=== PATIENT | female | born 1970 | race Hispanic/Latino ===

== ENCOUNTER 2019-11-25 14:23 | Emergency (ER) | payer OTHER ==
--- OUTSIDE RECORDS SUMMARY | 2019-11-25 14:25 | XMS REPORT ---
:1970 [facility] Address [address] [place] [address] Care Team Providers Name Role Phone Unavailable Unavailable Unavailable Payers Payer Name Policy Type Policy Number Effective Date Expiration Date Problems This patient has no known problems. Allergies, Adverse Reactions, Alerts Allergy Allergy Status Severity Reaction(s) Onset Inactive Treating Comments Name Type Date Date Clinician No Known DA Active U 2018-08 Allergies -26 00:00:0 0 No Known DA Active U 2018-08 Allergies - 00:00:0 0 Medications This patient has no known medications. Results Test Description Test Time Test Comments Text Results Atomic Results Result Comments - XR FLUORO FOR SPINE INJ 2019-01-11 17:23:00 Patient Name: BHUMI VARGAS Unit No: [id number] EXAMS: CPT CODE: [id number] XR FLUORO FOR SPINE INJ 03235 LUMBAR EPIRADICULAR INJECTION REFERRAL PHYSICIAN: Alfonzo Anderson M.D. PREOPERATIVE DIAGNOSIS: Lumbar Radiculitis POSTOPERATIVE DIAGNOSIS: L4-5 grade 1 spondylolisthesis with primary left L5 radicular pain PROCEDURES PERFORMED: Fluoroscopically guided needle localization of the bilateral L4 and bilateral L5 spinal nerves with transforaminal epidurograms and epidural injection of local anesthetic and steroid. FINDINGS: While preoperative orders were on the right, the patient claimed no pain on the right and only left-sided pain in an L5 radicular pattern. For this reason, bilateral injections were performed. Good flow seen through all foramen with flow limitations in the bilateral L4-5 lateral recesses. Good flow seen centrally across the L4-5 grade 1 spondylolisthesis with minimal disc displacement. Excellent flow was also seen retrograde across L5-S1 and L3-4. Provocation with injection was negative. Anesthetic response was positive with the patient noting complete relief of her low back and left lower extremity pain. Preinjection VAS 9/10. Postinjection VAS 0/10. Steroid response pending follow-up. ESTIMATED BLOOD LOSS: Minimal ANESTHESIA: TIVA COMPLICATIONS: None DETAILS OF PROCEDURE: After obtaining stable vital signs, informed consent and IV access, with no contraindications, the patient was taken to the operating room and placed in a prone position with all extremities padded and appropriate monitors placed. The patient was sterilely prepped and draped over the lumbosacral spine. Using fluoroscopic visualization the insertion sites were marked for paravertebral approaches and using standard technique, a 25 gauge needle was advanced to the base of each pedicle without paresthesias. Isovue-300 contrast 0.2 mL of was injected incrementally with frequent negative aspirations to produce each epidurogram. There were no signs of intravascular or intrathecal uptake. Bupivicaine 0.75% 0.25 mL with lidocaine 4% 0.25 mL and Decadron 5 mg was then incrementally injected with frequent negative aspirations and again there were no signs of intravascular or intrathecal uptake. The needles were removed and the patient was taken to the PACU in good condition. at 1723 Reported and signed by: David Burnett M.D. [facility] NAME: BHUMI VARGAS [address] [facility] PHYS: David Woods MD [place], [place] [address] : 1970 AGE: 48 SEX: F LOC: [place] PHONE #: [phone] EXAM DATE: 01/11/2019 STATUS: REG [facility] [place] FAX #: [phone] RAD #: D/C DT PAGE 1 Signed Report (CONTINUED) Patient Name: BHUMI VARGAS Unit No: [id number] EXAMS: CPT CODE: [id number] XR FLUORO FOR SPINE INJ 46047 <Continued> CC: Alfonzo Anderson M.D. Technologist: Uzma Pickard(R) Transcribed D/ (3432) Hue [facility] NAME: BHUMI VARGAS [address] [facility] PHYS: David Woods MD [place], [place] [address] : 1970 AGE: 48 SEX: F LOC: [place] PHONE #: [phone] EXAM DATE: 01/11/2019 STATUS: [facility] [place] FAX #: [phone] RAD #: D/C DT PAGE 2 Signed Report Patient Name: BHUMI VARGAS Unit No: [id number] EXAMS: CPT CODE: [id number] XR FLUORO FOR SPINE INJ 34320 <Continued> Orig Print D/T: S: 01/11/2019 (7743) [facility] NAME: BHUMI VARGAS [address] [facility] PHYS: David Woods MD [place] [address] : 1970 AGE: 48 SEX: F LOC: [place] PHONE #: [phone] EXAM DATE: 01/11/2019 STATUS: [facility] [place] FAX #: [phone] RAD #: D/C DT PAGE 3 Signed Report GLUBED 2019-01-11 09:44:00 Test Item Value Reference Range Comments GLUBED (test code=GLUBED) 91 mg/dL 60-125 [id number] 08:05:00 Test Item Value Reference Range Comments GLUBED (test code=GLUBED) 110 mg/dL 60-125
[2019-11-25] MEDS ORDERED: HYDROCODONE/APAP 5/325 MG TAB ONE (15:03)
--- NOTE | 2019-11-25 15:24 | RAD REPORT ---
EXAM DESCRIPTION: CT - CTHCSPWOC - 11/25/2019 3:06 pm CLINICAL HISTORY: Trauma, head and neck injury. fall, head/face injury, neck pain COMPARISON: Facial Bones W/ Mpr dated 11/25/2019 TECHNIQUE: Axial 5 mm thick images of the head were obtained. Axial 2 mm thick images of the cervical spine were obtained with sagittal and coronal reconstruction images generated and reviewed. All CT scans are performed using dose optimization technique as appropriate and may include automated exposure control or mA/KV adjustment according to patient size. FINDINGS: CT HEAD WITHOUT CONTRAST: No acute hemorrhage, hydrocephalus or extra-axial collection is identified.No areas of brain edema or midline shift. The paranasal sinuses and mastoids are clear.The calvarium is intact. CT CERVICAL SPINE WITHOUT CONTRAST: No fracture or subluxation.Mild lower cervical spondylosis.No prevertebral soft tissues swelling is i dentified. IMPRESSION: No acute intracranial or cervical spine findings.
--- NOTE | 2019-11-25 15:25 | RAD REPORT ---
EXAM DESCRIPTION: CT - CTFB CLINICAL HISTORY: FACIAL PAIN Fall, trauma, pain and swelling to left side of face. COMPARISON: No comparisons TECHNIQUE: Axial 2 mm thick images of the face were obtained with sagittal and coronal reconstructio n images. All CT scans are performed using dose optimization technique as appropriate and may include automated exposure control or mA/KV adjustment according to patient size. FINDINGS: No acute facial bone fracture is seen.The mandible is intact. The globes and orbital contents are grossly unremarkable.The paranasal sinuses and mastoids are clear . IMPRESSION: Negative for facial bone fracture.
--- NOTE | 2019-11-25 15:39 | RAD REPORT ---
EXAM DESCRIPTION: RAD - Knee Left 3 View - 11/25/2019 3:33 pm CLINICAL HISTORY: PAIN COMPARISON: No comparisons FINDINGS: Hyjq-gu-rmxbduol medial joint compartment space narrowing is present compatible with mild osteoarthritis. No fracture or joint effusion seen.
--- NOTE | 2019-11-25 15:43 | RAD REPORT ---
EXAM DESCRIPTION: RAD - Chest Pa And Lat (2 Views) - 11/25/2019 3:33 pm CLINICAL HISTORY: BLUNT CHEST TRAUMA Chest pain. COMPARISON: No comparisons FINDINGS: The lungs are clear. The heart is normal in size. No displaced fractures. IMPRESSION: No acute or concerning finding suspected.
--- NOTE | 2019-11-25 16:20 | EDPHYS ---
Physician Documentation [facility] Name: Flor Groves Age: 49 yrs Sex: Female : 1970 Arrival Date: 11/25/2019 Time: 14:25 Bed 20 Private MD: ED Physician Jamie Seay HPI: 11/25 14:59 This 49 yrs old Female presents to ER via Wheelchair with complaints of Fall rn Injury, Facial Swelling, Leg Swelling. 14:59 Details of fall: The patient fell from an upright position. Onset: The symptoms/episode rn began/occurred just prior to arrival. Associated injuries: The patient sustained injury to the head, injury to the chest, lef tknee. Severity of symptoms: At their worst the symptoms were mild, in the emergency department the symptoms are unchanged. The patient has not experienced similar symptoms in the past. Reports fell while walking at store, unsure how she fell, reports hits forehead, and left knee, no LOC, reports happened very quickly and not sure of all events. No blood thinners. Reports mild anterior chest pain with breathing, but denies sob. + mild neck pain.. 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 - Coronavirus screen:: The patient HAS traveled to [place], [place], or [place] in the past 14 days. The patient does NOT have a fever and/or cough. - Social history:: Smoking status: Patient/guardian denies using. - Family history:: not pertinent. - Ebola Screening: : Patient reports travel to an Ebola-affected area in the 21 days before illness onset. Patient reports to have traveled to [facility] from [place] 2019. - Hospitalizations: : No recent hospitalization is reported. ROS: 14:59 Constitutional: Negative for fever, chills, and weight loss, Eyes: Negative for injury, rn pain, redness, and discharge, Neck: + neck pain Cardiovascular: + anterior chest pain Respiratory: Negative for shortness of breath, cough, wheezing Abdomen/GI: Negative for abdominal pain, nausea, vomiting, diarrhea, and constipation, MS/Extremity: + left knee injury and pain Skin: Negative for injury, rash, and discoloration, Neuro: Negative for weakness, numbness, tingling, and seizure. Exam: 14:59 Constitutional: This is a well developed, well nourished patient who is awake, alert, rn and in no acute distress. Head/Face: Normocephalic, mild tenderness left forehead and periocular region Eyes: Pupils equal round and reactive to light, extra-ocular motions intact. Lids and lashes normal. Conjunctiva and sclera are non-icteric and not injected. ENT: No oral trauma Neck: No midline tenderness, + pericervical bilateral tenderness Chest/axilla: Normal chest wall appearance and motion. Cardiovascular: Regular rate and rhythm. No pulse deficits. Respiratory: No increased work of breathing, no retractions or nasal flaring. Abdomen/GI: soft, non-tender Back: No spinal tenderness. No costovertebral tenderness. Full range of motion. MS/ Extremity: Pulses equal, no cyanosis. Neurovascular intact. Mild painful ROM left knee with minimal swelling. Neuro: Awake and alert, GCS 15, oriented to person, place, time, and situation. Cranial nerves II-XII grossly intact. Motor strength 5/5 in all extremities. Sensory grossly intact. Cerebellar exam normal. Able to get to bed from wheelchair. 16:18 ECG was reviewed by the Attending Physician. rn Vital Signs: 14:41 BP 137 / 87; Pulse 89; Resp 17; Temp 97.9(TE); Pulse Ox 100% on R/A; Weight 99.79 kg; rb1 Height 5 ft. 4 in. (162.56 cm); Pain 10/10; 16:00 BP 134 / 84; Pulse 87; Resp 17; Temp 98.0(O); Pulse Ox 99% on R/A; mh5 16:54 BP 130 / 84; Pulse 84; Resp 16; Temp 98; Pulse Ox 100% ; bp 14:41 Body Mass Index 37.76 (99.79 kg, 162.56 cm) rb1 MDM: 14:43 Patient medically screened. rn 16:16 Differential diagnosis: closed head injury, contusion, sprain. Data reviewed: vital rn signs, nurses notes, EKG, radiologic studies, plain films. Test interpretation: by ED physician or midlevel provider: ECG, plain radiologic studies, No acute findings on cxr/knee. Counseling: I had a detailed discussion with the patient and/or guardian regarding: the historical points, exam findings, and any diagnostic results supporting the discharge/admit diagnosis, radiology results, the need for outpatient follow up, to return to the emergency department if symptoms worsen or persist or if there are any questions or concerns that arise at home. Response to treatment: the patient's symptoms have markedly improved after treatment, the patient's condition has returned to base line, and as a result, I will discharge patient. Special discussion: Based on the patient's history, exam and DX evaluation, there is no indication for emergent intervention or inpatient [place]. It is understood by the patient/guardian that if the SXs persist or worsen they need to return immediately for re-evaluation. I discussed with the patient/guardian in detail that at this point there is no indication for admission to the hospital. It is understood, however, that if the symptoms persist or worsen the patient needs to return immediately for re-evaluation. 11/25 14:49 Order name: CT Head C Spine; Complete Time: 15:53 rn 11/25 14:49 Order name: CT Facial Bones W/O Con; Complete Time: 15:53 rn 11/25 14:49 Order name: XRAY Chest Pa And Lat (2 Views); Complete Time: 15:53 rn 11/25 14:49 Order name: XRAY Knee LEFT 3 view; Complete Time: 15:53 rn 11/25 15:53 Order name: EKG; Complete Time: 15:54 rn 11/25 15:53 Order name: EKG - Nurse/Tech; Complete Time: 16:03 rn EC:18 Rate is 82 beats/min. Rhythm is regular. QRS [place] is Normal. MO interval is normal. QRS rn interval is normal. QT interval is normal. No Q waves. T waves are Normal. No ST changes noted. Clinical impression: Normal ECG. Interpreted by me. Reviewed by me. Administered Medications: 15:50 Drug: [place] 5 mg-325 mg 1 tabs Route: PO; bp 16:03 Follow up: Response: Pain is decreased bp Disposition: 11/25/19 16:18 Discharged to Home. Impression: Superficial injury of head, Contusion of left knee. - Condition is Stable. - Discharge Instructions: Contusion, Head Injury, Adult. - Medication Reconciliation Form, Thank You Letter, Antibiotic Education, Prescription Opioid Use form. - Follow up: Private Physician; When: As needed; Reason: Recheck today's complaints, Re-evaluation by your physician. - Problem is new. - Symptoms have improved. Signatures: Dispatcher [employer] EDMS Jamie Seay MD MD rn Barber, Rebecca, RN RN rb1 Quang Sol RN RN bp Corrections: (The following items were deleted from the chart) 15:02 14:59 Constitutional: Negative for fever, chills, and weight loss, Eyes: Negative for rn injury, pain, redness, and discharge, Neck: Negative for injury, pain, and swelling, Cardiovascular: + anterior chest pain Respiratory: Negative for shortness of breath, cough, wheezing Abdomen/GI: Negative for abdominal pain, nausea, vomiting, diarrhea, and constipation, MS/Extremity: + left knee injury and pain Skin: Negative for injury, rash, and discoloration, Neuro: Negative for weakness, numbness, tingling, and seizure, rn 16:55 16:18 11/25/2019 16:18 Discharged to Home. Impression: Superficial injury of head; bp Contusion of left knee. Condition is Stable. Forms are Medication Reconciliation Form, Thank You Letter, Antibiotic Education, Prescription Opioid Use. Follow up: Private Physician; When: As needed; Reason: Recheck today's complaints, Re-evaluation by your physician. Problem is new. Symptoms have improved. rn
--- NOTE | 2019-11-25 16:20 | ER ---
Nurse's Notes [facility] Name: Flor Groves Age: 49 yrs Sex: Female : 1970 Arrival Date: 11/25/2019 Time: 14:25 Bed 20 Private MD: Diagnosis: Superficial injury of head;Contusion of left knee Presentation: 11/25 14:36 Presenting complaint: states: Fell today at [employer] at 1345. Hit left side of rb1 face, denies LOC. Swelling left leg. Transition of care: patient was not received from another setting of care. Onset of symptoms was November 25, 2019 at 13:45. Risk Assessment: Do you want to hurt yourself or someone else? Patient reports no desire to harm self or others. Initial Sepsis Screen: Does the patient meet any 2 criteria? No. Patient's initial sepsis screen is negative. Does the patient have a suspected source of infection? No. Patient's initial sepsis screen is negative. Care prior to arrival: None. 14:36 Method Of Arrival: Wheelchair [facility] 14:36 Acuity: CHAPIS 3 rb1 Triage Assessment: 14:41 General: Appears in no apparent distress. comfortable, Behavior is calm, cooperative. rb1 Pain: Complains of pain in left side of head Pain currently is 10 out of 10 on a pain scale. Neuro: Level of Consciousness is awake, alert, obeys commands, Oriented to person, place, time, situation. Respiratory: Airway is patent Respiratory effort is even, unlabored, Respiratory pattern is regular, symmetrical. Derm: Skin is pink, warm \T\ dry. 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 - Coronavirus screen:: The patient HAS traveled to [place], [place], or [place] in the past 14 days. The patient does NOT have a fever and/or cough. - Social history:: Smoking status: Patient/guardian denies using. - Family history:: not pertinent. - Ebola Screening: : Patient reports travel to an Ebola-affected area in the 21 days before illness onset. Patient reports to have traveled to Returned from [place] 2019. - Hospitalizations: : No recent hospitalization is reported. Screenin:50 Abuse screen: Denies threats or abuse. Denies injuries from another. Nutritional bp screening: No deficits noted. Tuberculosis screening: No symptoms or risk factors identified. Fall Risk None identified. Assessment: 14:50 General: SEE TRIAGE NOTE. bp 15:49 Reassessment: PT RETURNED FROM RADIOLOGY, RESULTS PENDING. bp 16:53 Reassessment: PT D/C HOME AMBULATORY WITH FAMILY, DX WITH SUPERFICIAL CONTUSION. bp Vital Signs: 14:41 BP 137 / 87; Pulse 89; Resp 17; Temp 97.9(TE); Pulse Ox 100% on R/A; Weight 99.79 kg; rb1 Height 5 ft. 4 in. (162.56 cm); Pain 10/10; 16:00 BP 134 / 84; Pulse 87; Resp 17; Temp 98.0(O); Pulse Ox 99% on R/A; mh5 16:54 BP 130 / 84; Pulse 84; Resp 16; Temp 98; Pulse Ox 100% ; bp 14:41 Body Mass Index 37.76 (99.79 kg, 162.56 cm) rb1 ED Course: 14:25 Patient arrived in ED. as 14:40 Triage completed. rb1 14:41 Arm band placed on right wrist. rb1 14:43 Jamie Seay MD is Attending Physician. rn 14:50 Patient has correct armband on for positive identification. Bed in low position. Call bp light in reach. Side rails up X2. Adult w/ patient. 14:54 Quang Sol, RN is Primary Nurse. bp 15:10 CT Head C Spine In Process Unspecified. EDMS 15:13 CT Facial Bones W/O Con In Process Unspecified. EDMS 15:34 XRAY Chest Pa And Lat (2 Views) In Process Unspecified. EDMS 15:34 XRAY Knee LEFT 3 view In Process Unspecified. EDMS 16:53 No provider procedures requiring assistance completed. Patient did not have IV access bp during this emergency room visit. Administered Medications: 15:50 Drug: [place] 5 mg-325 mg 1 tabs Route: PO; bp 16:03 Follow up: Response: Pain is decreased bp Outcome: 16:18 Discharge ordered by . rn 16:53 Discharged to home ambulatory, with family. bp 16:53 Condition: stable 16:53 Discharge instructions given to patient, Instructed on discharge instructions, follow up and referral plans. Demonstrated understanding of instructions, follow-up care. 16:55 Patient left the ED. bp Signatures: Dispatcher [employer] Gregoria Stein Roman, MD MD rn Barber, Rebecca, RN RN rb1 Jose, [facility] Quang Sol RN RN bp
[2019-11-25 17:02] VITALS: BP 130/84; TEMP 98; O2SAT 100
--- NOTE | 2019-11-26 06:15 | EKG ---
Test Date: 2019-11-25 Test Time: 16:09:43 [employer]: DOMINIQUE MEASUREMENT RESULTS: Intervals: Rate: 82 LA: 160 QRSD: 84 QT: 390 QTc: 455 [place]: P: 36 LA: 160 QRS: 46 T: 45 INTERPRETIVE STATEMENTS: Normal sinus rhythm Normal ECG No previous ECG available for comparison Electronically Signed On 11-26-19 06:14:36 PROVIDER RELATIONS ADVOCATE by Vipin Massey
== END 2019-11-25 16:55 | disposition home or self-care (01) ==
LOC: ER 14:23
DX: S80.02XA Contusion of left knee, initial encounter (principal); R07.9 Chest pain, unspecified; W19.XXXA Unspecified fall, initial encounter; Y93.01 Activity, walking, marching and hiking; Y92.512 Supermarket, store or market as the place of occurrence of the external cause; I10 Essential (primary) hypertension
CPT/HCPCS: 70450; 70486; 71046; 72125; 76377; 93005; 99283

== ENCOUNTER 2023-05-11 10:21 | Emergency (ER) | payer OTHER ==
--- OUTSIDE RECORDS SUMMARY | 2023-05-11 10:26 | XMS REPORT | Continuity of Care Document ---
:1970 Author Organization [facility] t Address [address] [place] [address] Care Team Providers Name Role Phone MARY JO TAMAYO Primary Care Physician Unavailable LAURA ROSS Attending Clinician Unavailable Doctor Unassigned, [place] Attending Clinician Unavailable HERMELINDA JIMENEZ Attending Clinician Unavailable Hermelinda Jimenez MD Attending Clinician Fili Attending Clinician Unavailable Alfonzo Anderson Attending Clinician [phone] David Burnett Attending Clinician Unavailable Alfonzo Anderson Attending Clinician Unavailable Jennifer Stephens Attending Clinician [facility] Attending Clinician Unavailable Garland Ventura Attending Clinician GARLAND BECKMAN Attending Clinician Unavailable Fili Admitting Clinician Unavailable Alfonzo Anderson Admitting Clinician Unavailable Payers Payer Name Policy Type Policy Number Effective Date Expiration Date S kassandra [facility] [id number] 2019 PPO 00:00:00 [facility] BC[facility] BLUE [id number] 2014 ADVANTAGE O 00:00:00 [facility] [id number] 2021 (PPO) 00:00:00 Problems Condition Condition Condition Status Onset Resolution Last Treating Co mments Source Name Details Category Date Date Treatment Clinician Date 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 04-22 [place] sthesis sthesis 00:00: dic 00 Sports Medicin e Degenerati Degenerati Problem Active A zalea on of on of - Orthope cervical Cervical 00:00: dic interverte Interverte 00 Sp orts bral disc bral Disc Medi ashlyn e Cervical Cervical Problem Active [place]ale a radiculopa Radiculopa 04-22 Or thope thy thy 00:00: dic 00 Sports Medicin e Lumbar Lumbar Problem Active Kerry disc Disc 3-28 Orthope prolapse Prolapse 00:00: dic with with 00 Sports radiculopa Radiculopa Me dicin thy thy e Spinal Spinal Problem Active Kerry stenosis Stenosis 3-28 Orthop e of lumbar of Lumbar 00:00: dic region Region 00 Sports Medicin e Displaceme Displaceme Problem Active 2017-10 A zalea nt of nt of 2-10 Orthope cervical Cervical 00:00: dic interverte Interverte 00 Sp orts bral disc bral Disc Medi ashlyn e Degenerati Degenerati Problem Active 2017-10 A zalea on of on of 2-10 Orthope lumbar Lumbar 00:00: dic interverte Interverte 00 Sp orts bral disc bral Disc Medi ashlyn e Degenerati Degenerati Problem Active 2017-10 A z[place]a on of on of 2-10 Orthope lumbosacra Lumbosacra 00:00: di c l l 00 Sports interverte Interverte Me dicin bral disc bral Disc e Spondyloli Spondyloli Problem Active 2017-10 A zalea sthesis sthesis 2-10 Orthope 00:00: dic 00 Sports Medicin e Spinal Spinal Problem Active 2017-10 Kerry stenosis Stenosis 1-28 Orthop e in in 00:00: dic cervical Cervical 00 Sports region Region Medicin e Cervical Cervical Problem Active 2017-10 [place]ale a disc Disc 1-28 Orthope disorder Disorder 00:00: dic with with 00 Sports radiculopa Radiculopa Me dicin thy thy e Lumbar Lumbar Problem Active 2017-10 Kerry radiculopa Radiculopa 1-16 Or thope thy thy 00:00: dic 00 Sports Medicin e Pain in Pain in Problem Active 2017-10 Kerry left arm Left Arm 1-16 Orthop e 00:00: dic 00 Sports Medicin e Neck pain Neck Pain Problem Active 2017-10 Aza richie 0-11 Orthope 00:00: dic 00 Sports Medicin e Low back Low Back Problem Active 2017-10 [place]ale a pain Pain 0-11 Orthope 00:00: dic 00 Sports Medicin e Other Other Disease Active Univers postproced postproced 4-21 it y of ural ural 00:00: [place] status(V45 status(V45 00 Me dical .89) .89) Branch Allergies, Adverse Reactions, Alerts Allergy Allergy Status Severity Reaction(s) Onset Inactive Treating Comm ents Source Name Type Date Date Clinician No Known DA Active U 2017-10 [facility] Allergie 11-11 [facility] 00:00: Orthope 00 dic Hosp[facility] No Known DA Active U 2017-10 [facility] Allergie 11-11 [place] s 00:00: Orthope 00 dic Hospita l No Known DA Active U 2017-10 [facility] Allergie 11-06 [place] s 00:00: Orthope 00 dic Hospita l NO KNOWN Drug Active [facility] Social Habit Start Date Stop Date Quantity Comments Source Gender identity [facility] Sexual orientation [facility] Exposure to 2022-08-17 2022-08-27 Not sure [facility] SARS-CoV-2 (event) 00:00:00 08:38:00 [facility] Tobacco use and 2022-08-27 2022-08-27 Smokeless Universit y of exposure 00:00:00 00:00:00 tobacco non-user [facility] History of Social 2022-08-27 2022-08-27 Univers ity of function 00:00:00 00:00:00 [facility] Sex [birth year] Universit y of 00:00:00 00:00:00 [facility] Smoking Status Start Date Stop Date Source Never smoked tobacco [facility] Medications Ordered Filled Start Stop Current Ordering Indication Dosage Frequency Signature Comments Components Source Medication Medication Date Date Medication? Clinician (SIG) Name Name triamcinolo 2021-10- No [id number] 40mg Univers ne 10-27 9109 ity of acetonide 16:00: 14:50 [place] (KENALOG) 00 :00 Medical injection Branch 40 mg triamcinolo 2021-10- No [id number] 40mg 40 mg, Univers ne 10-27 9109 Intramuscu ity of acetonide 16:00: 14:50 [place]CE, [place] (KE[place]LOG[place] 00 :00 1 dose, On Medi jayson injection Fri Branch 40 mg 08/27/22 at 1000, Routine triamcinolo 2021-10- No [id number] 40mg Univers ne 10-27 9109 ity of acetonide 16:00: 14:50 [place] (KENALOG) 00 :00 Medical injection Branch 40 mg triamcinolo 2021-10- No [id number] 40mg 40 mg, Univers ne 10-27 9109 Intramuscu ity of acetonide 16:00: 14:50 [place]CE, [place] (KE[place]LOG) 00 :00 1 dose, On Medi jayson injection Fri Branch 40 mg 08/27/22 at 1000, Routine amitriptyli 2020-0 Yes TAKE 1 Univ ers ne 25 mg 7-07 TABLET BY ity of tablet 00:00: MOUTH ONCE 00 DAILY AT Medical BEDTIME Branch ONETOUCH 2020-0 Yes USE TO Univers ULTRA BLUE 7-07 CHECK ity of TEST STRIP 00:00: GLU[place]SE [place] strip 00 ONCE DAILY Medical Branch levothyroxi 2020-0 Yes 50ug Take 50 Uni vers ne 50 mcg 7-07 mcg by ity of tablet 00:00: mouth. [place] 00 Medical Branch losartan 2020-0 Yes 100mg Take 100 Univ ers 100 mg 7-07 mg by ity of tablet 00:00: mouth 00 daily. Medical Branch metFORMIN 2020-0 Yes 1000mg Take 1,000 Univers 1,000 mg 7-07 mg by ity of tablet 00:00: mouth 2 [place] 00 (two) Medical times Branch daily. amitriptyli 2020-0 Yes TAKE 1 Univ ers ne 25 mg 7-07 TABLET BY ity of tablet 00:00: MOUTH ONCE [place] 00 DAILY AT Medical BEDTIME Branch ONETOUCH 2020-0 Yes USE TO Univers ULTRA BLUE 7-07 CHECK ity of TEST STRIP 00:00: GLUCOSE [place] strip 00 ONCE DAILY Medical Branch levothyroxi 2020-0 Yes 50ug Take 50 Uni vers ne 50 mcg 7-07 mcg by ity of tablet 00:00: mouth. Medical Branch losartan 2020-0 Yes 100mg Take 100 Univ ers 100 mg 7-07 mg by ity of tablet 00:00: mouth 00 daily. Medical Branch metFORMIN 2020-0 Yes 1000mg Take 1,000 Univers 1,000 mg 7-07 mg by ity of tablet 00:00: mouth 2 (two) Medical times Branch daily. amitriptyli 2020-0 Yes TAKE 1 Univ ers ne 25 mg 7-07 TABLET BY ity of tablet 00:00: MOUTH ONCE DAILY AT Medical BEDTIME Branch ONETOUCH 2020-0 Yes USE TO Univers ULTRA BLUE 7-07 CHECK ity of TEST STRIP 00:00: GLUCOSE [place] strip 00 ONCE DAILY Medical Branch levothyroxi 2020-0 Yes 50ug Take 50 Uni vers ne 50 mcg 7-07 mcg by ity of tablet 00:00: mouth. Medical Branch losartan 2020-0 Yes 100mg Take 100 Univ ers 100 mg 7-07 mg by ity of tablet 00:00: mouth daily. Medical Branch metFORMIN 2020-0 Yes 1000mg Take 1,000 Univers 1,000 mg 7-07 mg by ity of tablet 00:00: mouth 2 (two) Medical times Branch daily. amitriptyli 2020-0 Yes TAKE 1 Univ ers ne 25 mg 7-07 TABLET BY ity of tablet 00:00: MOUTH ONCE DAILY AT Medical BEDTIME Branch ONETOUCH 2020-0 Yes USE TO Univers ULTRA BLUE 7-07 CHECK ity of TEST STRIP 00:00: GLUCOSE [place] strip 00 ONCE DAILY Medical Branch levothyroxi 2020-0 Yes 50ug Take 50 Uni vers ne 50 mcg 7-07 mcg by ity of tablet 00:00: mouth. Medical Branch losartan 2020-0 Yes 100mg Take 100 Univ ers 100 mg 7-07 mg by ity of tablet 00:00: mouth 00 daily. Medical Branch metFORMIN 2020-0 Yes 1000mg Take 1,000 Univers 1,000 mg 7-07 mg by ity of tablet 00:00: mouth 2 (two) Medical times Branch daily. amitriptyli 2020-0 Yes TAKE 1 Univ ers ne 25 mg 7-07 TABLET BY ity of tablet 00:00: MOUTH ONCE DAILY AT Medical BEDTIME Branch ONETOUCH 2020-0 Yes USE TO Univers ULTRA BLUE 7-07 CHECK ity of TEST STRIP 00:00: GLUCOSE [place] strip 00 ONCE DAILY Medical Branch levothyroxi 2020-0 Yes 50ug Take 50 Uni vers ne 50 mcg 7-07 mcg by ity of tablet 00:00: mouth. Medical Branch losartan 2020-0 Yes 100mg Take 100 Univ ers 100 mg 7-07 mg by ity of tablet 00:00: mouth daily. Medical Branch metFORMIN 2020-0 Yes 1000mg Take 1,000 Univers 1,000 mg 7-07 mg by ity of tablet 00:00: mouth 2 (two) Medical times [place] daily. amitriptyli 2020-0 Yes TAKE 1 Univ ers ne 25 mg 7-07 TABLET BY ity of tablet 00:00: MOUTH ONCE DAILY AT [facility] BEDTIME Branch ONETOUCH 2020-0 Yes USE TO Univers ULTRA BLUE 7-07 CHECK ity of TEST STRIP 00:00: GLUCOSE [place] strip 00 ONCE DAILY Medical Branch levothyroxi 2020-0 Yes 50ug Take 50 Uni vers ne 50 mcg 7-07 mcg by ity of tablet 00:00: mouth. Medical Branch losartan 2020-0 Yes 100mg Take 100 Univ ers 100 mg 7-07 mg by ity of tablet 00:00: mouth daily. Medical Branch metFORMIN 2020-0 Yes 1000mg Take 1,000 Univers 1,000 mg 7-07 mg by ity of tablet 00:00: mouth 2 (two) Medical times [place] daily. loratadine 2020-0 Yes 10mg Take 10 mg U nivers 10 mg 6-27 by mouth ity of tablet 00:00: daily. Medical Branch loratadine 2020-0 Yes 10mg Take 10 mg U nivers 10 mg 6-27 by mouth ity of tablet 00:00: daily. Medical Branch loratadine 2020-0 Yes 10mg Take 10 mg U nivers 10 mg 6-27 by mouth ity of tablet 00:00: daily. Medical Branch loratadine 2020-0 Yes 10mg Take 10 mg U nivers 10 mg 6-27 by mouth ity of tablet 00:00: daily. [place] Medical Branch loratadine 2020-0 Yes 10mg Take 10 mg U nivers 10 mg 6-27 by mouth ity of tablet 00:00: daily. [place] Medical Branch loratadine 2020-0 Yes 10mg Take 10 mg U nivers 10 mg 6-27 by mouth ity of tablet 00:00: daily. [place] Medical Branch diclofenac 2020-0 Yes 75mg Take 75 mg U nivers 75 mg EC 6-26 by mouth 2 ity o f tablet 00:00: (two) [place] 00 times Medical daily. Branch diclofenac 2020-0 Yes 75mg Take 75 mg U nivers 75 mg EC 6-26 by mouth 2 ity o f tablet 00:00: (two) [place] 00 times Medical daily. Branch diclofenac 2020-0 Yes 75mg Take 75 mg U nivers 75 mg EC 6-26 by mouth 2 ity o f tablet 00:00: (two) [place] times Medical daily. Branch diclofenac 2020-0 Yes 75mg Take 75 mg U nivers 75 mg EC 6-26 by mouth 2 ity o f tablet 00:00: (two) [place] times Medical daily. Branch diclofenac 2020-0 Yes 75mg Take 75 mg U nivers 75 mg EC 6-26 by mouth 2 ity o f tablet 00:00: (two) [place] 00 times Medical daily. Branch diclofenac 2020-0 Yes 75mg Take 75 mg U nivers 75 mg EC 6-26 by mouth 2 ity o f tablet 00:00: (two) [place] times Medical daily. Branch TRULICITY 2020-0 Yes INJECT ONE Un pepper 0.75 mg/0.5 6-20 DOSE UNDER it y of mL PnIj 00:00: THE [facility] WEEKLY Medical Branch TRULICITY 2020-0 Yes INJECT ONE Un pepper 0.75 mg/0.5 6-20 DOSE UNDER it y of mL PnIj 00:00: THE [facility] WEEKLY Medical Branch TRULICITY 2020-0 Yes INJECT ONE Un pepper 0.75 mg/0.5 6-20 DOSE UNDER it y of mL PnIj 00:00: THE [facility] WEEKLY Medical Branch TRULICITY 2020-0 Yes INJECT ONE Un pepper 0.75 mg/0.5 6-20 DOSE UNDER it y of mL PnIj 00:00: THE SKIN [place] WEEKLY Medical Branch TRULICITY 2020-0 Yes INJECT ONE Un pepper 0.75 mg/0.5 6-20 DOSE UNDER it y of mL PnIj 00:00: THE SKIN [place] WEEKLY Medical Branch TRULICITY 2020-0 Yes INJECT ONE Un pepper 0.75 mg/0.5 6-20 DOSE UNDER it y of mL PnIj 00:00: THE SKIN [place] WEEKLY Medical Branch pioglitazon 2020-0 Yes 30mg Take 30 mg Univers e 30 mg 6-18 by mouth ity of tablet 00:00: daily. [place] Medical Branch pioglitazon 2020-0 Yes 30mg Take 30 mg Univers e 30 mg 6-18 by mouth ity of tablet 00:00: daily. [place] Medical Branch pioglitazon 2020-0 Yes 30mg Take 30 mg Univers e 30 mg 6-18 by mouth ity of tablet 00:00: daily. [place] Medical Branch pioglitazon 2020-0 Yes 30mg Take 30 mg Univers e 30 mg 6-18 by mouth ity of tablet 00:00: daily. [place] Medical Branch pioglitazon 2020-0 Yes 30mg Take 30 mg Univers e 30 mg 6-18 by mouth ity of tablet 00:00: daily. [place] Medical Branch pioglitazon 2020-0 Yes 30mg Take 30 mg Univers e 30 mg 6-18 by mouth ity of tablet 00:00: daily. [place] Medical Branch pantoprazol 2020-0 Yes 40mg Take 40 mg Univers e 40 mg EC 6-12 by mouth ity o f tablet 00:00: daily. [place] Medical Branch pantoprazol 2020-0 Yes 40mg Take 40 mg Univers e 40 mg EC 6-12 by mouth ity o f tablet 00:00: daily. [place] Medical Branch pantoprazol 2020-0 Yes 40mg Take 40 mg Univers e 40 mg EC 6-12 by mouth ity o f tablet 00:00: daily. [place] Medical Branch pantoprazol 2020-0 Yes 40mg Take 40 mg Univers e 40 mg EC 6-12 by mouth ity o f tablet 00:00: daily. [place] [address] Medical Branch pantoprazol 2020-0 Yes 40mg Take 40 mg Univers e 40 mg EC 6-12 by mouth ity o f tablet 00:00: daily. [place] Medical Branch pantoprazol 2020-0 Yes 40mg Take 40 mg Univers e 40 mg EC 6-12 by mouth ity o f tablet 00:00: daily. [place] Medical Branch cyclobenzap 2020-0 Yes 10mg Take 10 mg Univers rine 10 mg 6-10 by mouth ity o f tablet 00:00: at [place] [address] bedtime. Medical Branch cyclobenzap 2020-0 Yes 10mg Take 10 mg Univers rine 10 mg 6-10 by mouth ity o f tablet 00:00: at [place] [address] bedtime. Medical Branch cyclobenzap 2020-0 Yes 10mg Take 10 mg Univers rine 10 mg 6-10 by mouth ity o f tablet 00:00: at [place] [address] bedtime. Medical Branch cyclobenzap 2020-0 Yes 10mg Take 10 mg Univers rine 10 mg 6-10 by mouth ity o f tablet 00:00: at [place] [address] bedtime. Medical Branch cyclobenzap 2020-0 Yes 10mg Take 10 mg Univers rine 10 mg 6-10 by mouth ity o f tablet 00:00: at [place] [address] bedtime. Medical Branch cyclobenzap 2020-0 Yes 10mg Take 10 mg Univers rine 10 mg 6-10 by mouth ity o f tablet 00:00: at [place] [address] bedtime. Medical Branch albuterol 2020-0 Yes USE 1 VIAL Un pepper 1.25 mg/3 6-09 IN ity of mL 00:00: NEBULIZER [place] nebulizer 00 THREE Medical solution TIMES Branch DAILY albuterol 2020-0 Yes USE 1 VIAL Un pepper 1.25 mg/3 6-09 IN ity of mL 00:00: NEBULIZER [place] nebulizer 00 THREE Medical solution TIMES Branch DAILY albuterol 2020-0 Yes USE 1 VIAL Un pepper 1.25 mg/3 6-09 IN ity of mL 00:00: NEBULIZER [place] nebulizer 00 THREE Medical solution TIMES Branch DAILY albuterol 2020-0 Yes USE 1 VIAL Un pepper 1.25 mg/3 6-09 IN ity of mL 00:00: NEBULIZER [place] nebulizer 00 THREE Medical solution TIMES Branch DAILY albuterol 2020-0 Yes USE 1 VIAL Un pepper 1.25 mg/3 6-09 IN ity of mL 00:00: NEBULIZER [place] nebulizer 00 THREE Medical solution TIMES Branch DAILY albuterol 2020-0 Yes USE 1 VIAL Un pepper 1.25 mg/3 6-09 IN ity of mL 00:00: NEBULIZER [place] nebulizer 00 THREE Medical solution TIMES Branch DAILY amoxicillin 2020-0 Yes 500mg Take 500 U nivers 500 mg 4-29 mg by ity of capsule 00:00: mouth 3 (three) Medical times Branch daily. fluticasone 2020-0 Yes USE 1 Unive rs propionate 4-29 SPRAY(S) ity o f 50 00:00: IN EACH [place] mcg/actuati 00 NOSTRIL Medic al on nasal ONCE DAILY Branc h spray mupirocin 2 2020-0 Yes APPLY A Uni vers % ointment 4-29 SMALL ity of 00:00: AMOUNT TO [place] AFFECTED Medical AREA TWICE Branch A DAY FOR INFECTION amoxicillin 2020-0 Yes 500mg Take 500 U nivers 500 mg 4-29 mg by ity of capsule 00:00: mouth 3 (three) Medical times Branch daily. fluticasone 2020-0 Yes USE 1 Unive rs propionate 4-29 SPRAY(S) ity o f 50 00:00: IN EACH [place] mcg/actuati 00 NOSTRIL Medic al on nasal ONCE DAILY Branc h spray mupirocin 2 2020-0 Yes APPLY A Uni vers % ointment 4-29 SMALL ity of 00:00: AMOUNT TO [place] AFFECTED Medical AREA TWICE Branch A DAY FOR INFECTION amoxicillin 2020-0 Yes 500mg Take 500 U nivers 500 mg 4-29 mg by ity of capsule 00:00: mouth 3 (three) Medical times Branch daily. fluticasone 2020-0 Yes USE 1 Unive rs propionate 4-29 SPRAY(S) ity o f 50 00:00: IN EACH [place] mcg/actuati 00 NOSTRIL Medic al on nasal ONCE DAILY Branc h spray mupirocin 2 2020-0 Yes APPLY A Uni vers % ointment 4-29 SMALL ity of 00:00: AMOUNT TO [place] AFFECTED Medical AREA TWICE Branch A DAY FOR INFECTION amoxicillin 2020-0 Yes 500mg Take 500 U nivers 500 mg 4-29 mg by ity of capsule 00:00: mouth 3 (three) Medical times Branch daily. fluticasone 2020-0 Yes USE 1 Unive rs propionate 4-29 SPRAY(S) ity o f 50 00:00: IN EACH [facility] NOSTRIL Medic al on nasal ONCE DAILY Branc h spray mupirocin 2 2020-0 Yes APPLY A Uni vers % ointment 4-29 SMALL ity of 00:00: AMOUNT TO [place] AFFECTED Medical AREA TWICE Branch A DAY FOR INFECTION amoxicillin 2019-0 Yes 500mg Take 500 U nivers 500 mg 4-29 mg by ity of capsule 00:00: mouth 3 [place] (three) Medical times Branch daily. fluticasone 2019-0 Yes USE 1 Unive rs propionate 4-29 SPRAY(S) ity o f 50 00:00: IN EACH [place] mcg/[facility] NOSTRIL Medic al on nasal ONCE DAILY Branc h spray mupirocin 2 2019-0 Yes APPLY A Uni vers % ointment 4-29 SMALL ity of 00:00: AMOUNT TO [place] AFFECTED Medical AREA TWICE Branch A DAY FOR INFECTION amoxicillin 2019-0 Yes 500mg Take 500 U nivers 500 mg 4-29 mg by ity of capsule 00:00: mouth 3 [place] [address] (three) Medical times Branch daily. fluticasone 2019-0 Yes USE 1 Unive rs propionate 4-29 SPRAY(S) ity o f 50 00:00: IN EACH [facility] NOSTRIL Medic al on nasal ONCE DAILY Branc h spray mupirocin 2 2019-0 Yes APPLY A Uni vers % ointment 4-29 SMALL ity of 00:00: AMOUNT TO [place] AFFECTED Medical AREA TWICE Branch A DAY FOR INFECTION amitriptyli amitriptyli 2018-1 No amitriptyl [place] ne 10 mg ne 10 mg 1-16 ine 10 mg Or thope tablet RX tablet RX 00:00: tablet RX dic by other MD by other MD 00 by other Sports MD Damir santana HYDROCODONE 2005- Yes 1 Tab Oral Univers -ACETAMINOP 4-25 Q6H ity of HEN 10-325 00:00: [place] MG ORAL TAB 00 Medical Branch IBUPROFEN Yes 1 Tab Oral Un pepper 600 MG ORAL 4-25 Q6H ity of TAB 00:00: [place] Medical Branch DOCUSATE 0 Yes 1 PO Qday Univ ers SODIUM 100 4-25 ity of MG ORAL CAP 00:00: [place] Medical Branch HYDROCODONE Yes 1 Tab Oral Univers -ACETAMINOP 4-25 Q6H ity of HEN 10-325 00:00: [place] MG ORAL TAB 00 Medical Branch IBUPROFEN 2006-0 Yes 1 Tab Oral Un pepper 600 MG ORAL 4-25 Q6H ity of TAB 00:00: [place] 00 Medical Branch DOCUSATE 2006-0 Yes 1 PO Qday Univ ers SODIUM 100 4-25 ity of MG ORAL CAP 00:00: [place] 00 Medical Branch HYDROCODONE 2006-0 Yes 1 Tab Oral Univers -ACETAMINOP 4-25 Q6H ity of HEN 10-325 00:00: [place] MG ORAL TAB 00 Medical Branch IBUPROFEN 2006-0 Yes 1 Tab Oral Un pepper 600 MG ORAL 4-25 Q6H ity of TAB 00:00: [place] 00 Medical Branch DOCUSATE 2006-0 Yes 1 PO Qday Univ ers SODIUM 100 4-25 ity of MG ORAL CAP 00:00: [place] 00 Medical Branch HYDROCODONE 2006-0 Yes 1 Tab Oral Univers -ACETAMINOP 4-25 Q6H ity of HEN 10-325 00:00: [place] MG ORAL TAB 00 Medical Branch IBUPROFEN 2006-0 Yes 1 Tab Oral Un pepper 600 MG ORAL 4-25 Q6H ity of TAB 00:00: [place] 00 Medical Branch DOCUSATE 2006-0 Yes 1 PO Qday Univ ers SODIUM 100 4-25 ity of MG ORAL CAP 00:00: [place] 00 Medical Branch HYDROCODONE 2006-0 Yes 1 Tab Oral Univers -ACETAMINOP 4-25 Q6H ity of HEN 10-325 00:00: [place] MG ORAL TAB 00 Medical Branch IBUPROFEN 2006-0 Yes 1 Tab Oral Un pepper 600 MG ORAL 4-25 Q6H ity of TAB 00:00: [place] 00 Medical Branch DOCUSATE 2006-0 Yes 1 PO Qday Univ ers SODIUM 100 4-25 ity of MG ORAL CAP 00:00: [place] 00 Medical Branch HYDROCODONE 2006-0 Yes 1 Tab Oral Univers -ACETAMINOP 4-25 Q6H ity of HEN 10-325 00:00: [place] MG ORAL TAB 00 Medical Branch IBUPROFEN 2006-0 Yes 1 Tab Oral Un pepper 600 MG ORAL 4-25 Q6H ity of TAB 00:00: [place] 00 Medical Branch DOCUSATE 2006-0 Yes 1 PO Qday Univ ers SODIUM 100 4-25 ity of MG ORAL CAP 00:00: [place] 00 Medical Branch Advair Advair No Advair [place] Diskus 250 Diskus 250 Diskus 250 Orthope mcg-50 mcg-50 mcg-50 dic mcg/dose mcg/dose mcg/dose Spo rts powder for powder for powder for Medicin inhalation inhalation inhalation e INHALE 1 INHALE 1 INHALE 1 PUFF BY PUFF BY PUFF BY MOUTH TWICE MOUTH TWICE MOUTH DAILY DAILY TWICE (MORNING (MORNING DAILY AND AND (MORNING EVENING) EVENING) AND APPROXIMATE APPROXIMATE EVENING) LY 12 HOURS LY 12 HOURS APPROXIMAT APART APART SOSA 12 HOURS APART albuterol albuterol No albuterol [place] sulfate HFA sulfate HFA sulfate Orthope 90 90 HFA 90 dic mcg/actuati mcg/actuati mcg/actuat Sports on aerosol on aerosol ion Med icin inhaler inhaler aerosol e INHALE 1 TO INHALE 1 TO inhaler 2 PUFFS BY 2 PUFFS BY INHALE 1 MOUTH EVERY MOUTH EVERY TO 2 PUFFS 4 HOURS 4 HOURS BY MOUTH NEEDED NEEDED EVERY 4 HOURS NEEDED amitriptyli amitriptyli No amitriptyl [place] ne 25 mg ne 25 mg ine 25 mg Or thope tablet TAKE tablet TAKE tablet dic 1 TABLET BY 1 TABLET BY TAKE 1 Sports MOUTH ONCE MOUTH ONCE TABLET BY Medicin DAILY AT DAILY AT MOUTH ONCE e BEDTIME BEDTIME DAILY AT BEDTIME amoxicillin amoxicillin No amoxicilli [place] 500 mg 500 mg n 500 mg Orthope capsule capsule capsule dic TAKE 1 TAKE 1 TAKE 1 Sports CAPSULE BY CAPSULE BY CAPSULE BY Medicin MOUTH THREE MOUTH THREE MOUTH e TIMES DAILY TIMES DAILY THREE TIMES DAILY Asprin Ec Asprin Ec No 1 Q1D Asprin Ec [place] Low Dose 81 Low Dose 81 Low Dose Orthope mg mg 81 mg dic tablet,renzo tablet,renzo tablet,del Sports yed release yed release ayed M edicin Take 1 Take 1 release e tablet tablet Take 1 every day every day tablet by oral by oral every day route. route. by oral route. atorvastati atorvastati No atorvastat [place] n 20 mg n 20 mg in 20 mg Ortho pe tablet TAKE tablet TAKE tablet dic 1 TABLET BY 1 TABLET BY TAKE 1 Sports MOUTH ONCE MOUTH ONCE TABLET BY Medicin DAILY DAILY MOUTH ONCE e DAILY Euthyrox 50 Euthyrox 50 No Euthyrox [place] mcg tablet mcg tablet 50 mcg O rthope TAKE 1 TAKE 1 tablet dic TABLET BY TABLET BY TAKE 1 Spo rts MOUTH ONCE MOUTH ONCE TABLET BY Medicin DAILY DAILY MOUTH ONCE e DAILY fluticasone fluticasone No 1puff(s BID fluticason [place] 55 55 ) e 55 Orthope mcg-salmete mcg-salmete mcg-salmet dic rol rol beatriz Sports 14mcg/actua 14mcg/actua 14mcg/actu Medicin tion breath tion breath ation e act,powder act,powder breath sensor sensor act,powder Inhale 1 Inhale 1 sensor puff twice puff twice Inhale 1 a day by a day by puff twice inhalation inhalation a day by route. route. inhalation route. fluticasone fluticasone No fluticason [place] propionate propionate e Ort hope 50 50 propionate dic mcg/actuati mcg/actuati 50 S ports on nasal on nasal mcg/actuat M edicin spray,suspe spray,suspe ion nasal e nsion USE 1 nsion USE 1 spray,susp SPRAY(S) IN SPRAY(S) IN ension USE EACH EACH 1 SPRAY(S) NOSTRIL NOSTRIL IN EACH ONCE DAILY ONCE DAILY NOSTRIL ONCE DAILY hydrochloro hydrochloro No hydrochlor [place] thiazide thiazide othiazide Or thope 12.5 mg 12.5 mg 12.5 mg dic tablet TAKE tablet TAKE tablet Sports 1 TO 2 1 TO 2 TAKE 1 TO Medici n TABLETS BY TABLETS BY 2 TABLETS e MOUTH ONCE MOUTH ONCE BY MOUTH DAILY ( DAILY ( ONCE DAILY ONLY IF ONLY IF ( ONLY IF LEGS ARE LEGS ARE LEGS ARE SWELLING) SWELLING) SWELLING) ibuprofen ibuprofen No ibuprofen [place] 400 mg 400 mg 400 mg Orthope tablet TAKE tablet TAKE tablet dic 1 TABLET BY 1 TABLET BY TAKE 1 Sports MOUTH THREE MOUTH THREE TABLET BY Medicin TIMES DAILY TIMES DAILY MOUTH e WITH FOOD WITH FOOD THREE NEEDED NEEDED TIMES FOR PAIN FOR PAIN DAILY WITH FOR FEVER FOR FEVER FOOD NEEDED FOR PAIN FOR FEVER lamotrigine lamotrigine No lamotrigin [place] e Orthope dic Sports Medicin e lamotrigine lamotrigine No lamotrigin Kerry 25 mg 25 mg e 25 mg Orthope tablet TAKE tablet TAKE tablet dic 2 TABLETS 2 TABLETS TAKE 2 Spo rts BY MOUTH IN BY MOUTH IN TABLETS BY Medicin THE MORNING THE MORNING MOUTH IN e THE MORNING loratadine loratadine No loratadine Kerry 10 mg 10 mg 10 mg Orth[facility] capsule capsule capsule dic Take by Take by Take by Sports oral route. oral route. oral M edicin route. e loratadine loratadine No loratadine Kerry 10 mg 10 mg 10 mg [facility] tablet TAKE tablet TAKE tablet dic 1 TABLET BY 1 TABLET BY TAKE 1 Sports MOUTH ONCE MOUTH ONCE TABLET BY Medicin DAILY DAILY MOUTH ONCE e DAILY losartan losartan No losartan Aza richie 100 mg 100 mg 100 mg Orthope tablet TAKE tablet TAKE tablet dic 1 TABLET BY 1 TABLET BY TAKE 1 Sports MOUTH ONCE MOUTH ONCE TABLET BY Medicin DAILY DAILY MOUTH ONCE e DAILY meloxicam meloxicam No 1 Q1D meloxicam Kerry 15 mg 15 mg 15 mg Orthope tablet Take tablet Take tablet dic 1 tablet 1 tablet Take 1 Sport s every day every day tablet Med icin by oral by oral every day e route. route. by oral route. metformin metformin No metformin Kerry 1,000 mg 1,000 mg 1,000 mg Ort hope tablet TAKE tablet TAKE tablet dic 1 TABLET BY 1 TABLET BY TAKE 1 Sports MOUTH TWICE MOUTH TWICE TABLET BY Medicin DAILY DAILY MOUTH e TWICE DAILY metoclopram metoclopram No metoclopra Kerry emanuel 10 mg emanuel 10 mg mide 10 mg Orthope tablet TAKE tablet TAKE tablet dic 3 TABLES BY 3 TABLES BY TAKE 3 Sports MOUTH MOUTH TABLES BY Me dicin DIRECTED DIRECTED MOUTH e PER YOUR PER YOUR DIRECTED COLONOSCOPY COLONOSCOPY PER YOUR PREP PAKET PREP PAKET COLONOSCOP Y PREP PAKET mupirocin 2 mupirocin 2 No mupirocin Kerry % topical % topical 2 % Ortho pe ointment ointment topical dic APPLY A APPLY A ointment Sport s SMALL SMALL APPLY A Medicin AMOUNT TO AMOUNT TO SMALL e AFFECTED AFFECTED AMOUNT TO AREA ON ARM AREA ON ARM AFFECTED TWO TIMES A TWO TIMES A AREA ON DAY DAY ARM TWO TIMES A DAY omeprazole omeprazole No omeprazole Kerry 40 mg 40 mg 40 mg Orthope capsule,del capsule,del capsule,de dic ayed ayed layed Sports release release release Medici n TAKE 1 TAKE 1 TAKE 1 e CAPSULE BY CAPSULE BY CAPSULE BY MOUTH ONCE MOUTH ONCE MOUTH ONCE DAILY DAILY DAILY BEFORE A BEFORE A BEFORE A MEAL MEAL MEAL OneTouch OneTouch No OneTouch Aza richie Delica Plus Delica Plus Delica Orthope Lancet 33 Lancet 33 Plus dic gauge USE 1 gauge USE 1 Lancet 33 Sports TO CHECK TO CHECK gauge USE Me dicin GLUCOSE GLUCOSE 1 TO CHECK e ONCE DAILY ONCE DAILY GLUCOSE ONCE DAILY OneTouch OneTouch No OneTouch Aza richie Ultra Test Ultra Test Ultra Test Orthope strips USE strips USE strips USE dic 1 STRIP TO 1 STRIP TO 1 STRIP TO Sports CHECK CHECK CHECK Medicin GLUCOSE GLUCOSE GLUCOSE e ONCE DAILY ONCE DAILY ONCE DAILY oxybutynin oxybutynin No oxybutynin Kerry Orthope dic Sports Medicin e oxybutynin oxybutynin No oxybutynin Kerry chloride ER chloride ER chloride Orthope 10 mg 10 mg ER 10 mg dic tablet,exte tablet,exte tablet,ext Sports nded nded ended Medicin release 24 release 24 release 24 e hr TAKE 1 hr TAKE 1 hr TAKE 1 TABLET BY TABLET BY TABLET BY MOUTH ONCE MOUTH ONCE MOUTH ONCE DAILY FOR DAILY FOR DAILY FOR URINARY URINARY URINARY INCONTINENC INCONTINENC INCONTINEN E E CE oxybutynin oxybutynin No oxybutynin Kerry chloride ER chloride ER chloride Orthope 5 mg 5 mg ER 5 mg dic tablet,exte tablet,exte tablet,ext Sports nded nded ended Medicin release 24 release 24 release 24 e hr TAKE 1 hr TAKE 1 hr TAKE 1 TABLET BY TABLET BY TABLET BY MOUTH ONCE MOUTH ONCE MOUTH ONCE DAILY DAILY DAILY pantoprazol pantoprazol No pantoprazo Kerry e 40 mg e 40 mg le 40 mg Ortho pe tablet,renzo tablet,renzo tablet,del dic yed release yed release ayed S ports TAKE 1 TAKE 1 release Medicin TABLET BY TABLET BY TAKE 1 e MOUTH ONCE MOUTH ONCE TABLET BY DAILY DAILY MOUTH ONCE DAILY pioglitazon pioglitazon No pioglitazo Kerry e 30 mg e 30 mg ne 30 mg Ortho pe tablet TAKE tablet TAKE tablet dic 1 TABLET BY 1 TABLET BY TAKE 1 Sports MOUTH ONCE MOUTH ONCE TABLET BY Medicin DAILY DAILY MOUTH ONCE e DAILY quetiapine quetiapine No quetiapine Kerry 100 mg 100 mg 100 mg [facility]ope tablet TAKE tablet TAKE tablet dic 1 TABLET BY 1 TABLET BY TAKE 1 Sports MOUTH AT MOUTH AT TABLET BY Me dicin BEDTIME BEDTIME MOUTH AT e BEDTIME quetiapine quetiapine No quetiapine Kerry 25 mg 25 mg 25 mg [facility]ope tablet TAKE tablet TAKE tablet dic 1 TABLET BY 1 TABLET BY TAKE 1 Sports MOUTH EVERY MOUTH EVERY TABLET BY Medicin DAY AT DAY AT MOUTH e BEDTIME BEDTIME EVERY DAY AT BEDTIME quetiapine quetiapine No quetiapine Kerry 50 mg 50 mg 50 mg [facility] tablet TAKE tablet TAKE tablet dic 1 TABLET BY 1 TABLET BY TAKE 1 Sports MOUTH TWICE MOUTH TWICE TABLET BY Medicin DAILY DAILY MOUTH e TWICE DAILY Rybelsus 14 Rybelsus 14 No Rybelsus Kerry mg tablet mg tablet 14 mg Orth ope TAKE 1 TAKE 1 tablet dic TABLET BY TABLET BY TAKE 1 Spo rts MOUTH ONCE MOUTH ONCE TABLET BY Medicin DAILY IN DAILY IN MOUTH ONCE e THE MORNING THE MORNING DAILY IN 30 MINUTES 30 MINUTES THE BEFORE BEFORE MORNING 30 FOOD, FOOD, MINUTES DRINK, OR DRINK, OR BEFORE MEDICAITION MEDICAITION FOOD, WITH NO WITH NO DRINK, OR MORE THAN 4 MORE THAN 4 MEDICAITIO OUNCES OF OUNCES OF N WITH NO PLAIN WATER PLAIN WATER MORE THAN 4 OUNCES OF PLAIN WATER Suprep Suprep No Suprep Kerry Bowel Prep Bowel Prep Bowel Prep Orthope Kit 17.5 Kit 17.5 Kit 17.5 dic gram-3.13 gram-3.13 gram-3.13 Sports gram-1.6 gram-1.6 gram-1.6 Med icin gram oral gram oral gram oral e solution solution solution trazodone trazodone No trazodone Kerry 50 mg 50 mg 50 mg Orthope tablet TAKE tablet TAKE tablet dic 1 TABLET BY 1 TABLET BY TAKE 1 Sports MOUTH AT MOUTH AT TABLET BY Me dicin BEDTIME FOR BEDTIME FOR MOUTH AT e SLEEP SLEEP BEDTIME FOR SLEEP Vital Signs Vital Name Observation Time Observation Value Comments Source Body height 2022-08-27 14:44:00 162.6 cm [facility] Body weight 2022-08-27 14:44:00 98.431 kg [facility] BMI 2022-08-27 14:44:00 37.25 kg/m2 [facility] Height 2022-04-22 00:00:00 62 [in_i] [facility] BMI (Body Mass 2022-04-22 00:00:00 39.3 kg/m2 Kerry [facility] Index) Sports Medicine Body Weight 2022-04-22 00:00:00 215 [lb_av] [facility] Systolic blood 2021-08-24 20:58:00 116 mm[Hg] Te calderon [facility] Diastolic blood 2021-08-24 20:58:00 75 mm[Hg] Delbert mckeon [facility] Body height 2021-08-24 20:58:00 167.6 cm [facility] Body weight 2021-08-24 20:58:00 99.791 kg [facility] BMI 2021-08-24 20:58:00 35.51 kg/m2 [facility] Procedures Procedure Date / Time Performed Performing Clinician [facility] esther [facility] PATIENT FINANCIAL 2023-05-11 14:49:18 Doctor Unassigned, No [facility] POLICY [facility] ASSIGNMENT OF BENEFITS 2022-08-27 14:40:30 Doctor Unassigned, No [facility] Encounters Start End Encounter Admission Attending Care Care Encounter Source Date/Time Date/Time Type Type Clinicians Facility Department ID 2021-08-14 Emergency [facility] [id number] Univers 06:07:52 ity [facility] 2023-05-11 2023-05-11 [facility] [id number] Univers 10:15:00 10:15:00 LAURA ity [facility] 2023-05-11 2023-05-11 Orders Doctor LARA 1.2.840.114 [id number] Univers 00:00:00 00:00:00 Only Unassigned, SAM 350.1.13.10 ity [place] [facility] 4.2.7.2.686 Ash as [id number] [address] 2023-04-01 2023-04-01 Outpatient SFA SFA Jorge 10:31:29 10:31:29 [id number] F Santiago 2023-03-18 2023-03-18 Outpatient SFA SFA Jorge 08:06:19 08:06:19 [id number] F Santiago 2023-01-25 2023-01-25 Outpatient SFA SFA Jorge 15:45:14 15:45:14 [id number] F Santiago 2022-08-27 2022-08-27 [facility] [id number] Univers 09:00:00 10:06:25 HERMELINDA itmichelle of [facility] 2022-08-27 2022-08-27 Office Tony [facility] [id number] Univers 09:00:00 10:06:25 Visit Hermelinda [facility] 350.1.13.10 it y of [place] 4.2.7.2.686 Ash as FRIDA?BLEA [id number] [place] dical [address] MEDICAL OFFICE [facility] 2022-08-27 2022-08-27 Orders Doctor JANE 1.2.840.114 [id number] Univers 00:00:00 00:00:00 Only Unassigned, SAM 350.1.13.10 ity of [place] [facility] 4.2.7.2.686 Ash as [id number] [address] 2022-04-22 2022-04-22 Outpatient FOG_Kozak_J AOSM AOSM [id number] Kerry 10:32:00 10:32:00 [facility] [id number] Orth ope dic Sports Medicin e 2022-04-22 2022-04-22 Alfonzo BOWER [place] - Ortho Kerry 00:00:00 00:00:00 MD Justin: Anny Barkley - Orthope [address] FOG_Of[facility], [place] [phone] , Ph. [phone] 2022-04-22 2022-04-22 Outpatient SATHISH Anderson [id number] a-0 00:00:00 00:00:00 Alfonzo Rueda [id number] 2022-04-06 2022-04-06 Outpatient FOG_Kozak_J AOSM AOSM [id number] Kerry 04:44:00 04:44:00 [facility] [id number] Orth ope dic Sports Medicin e 2022-03-30 2022-03-30 Outpatient FOG_Kozak_J AOSM AOSM [id number] Kerry 12:09:00 12:09:00 [facility] [id number] Orth ope dic Sports Medicin e 2022-03-22 2022-03-22 Outpatient MAYE Rooney PAIN [id number] [facility] 09:42:00 09:42:00 David Tucker [facility] 2021-12-29 2021-12-29 Inpatient MAYE Dillard RADI [id number] [facility] 07:31:00 07:31:00 Alfonzo Lozoya [facility] 2021-08-24 2021-08-24 [facility] [id number] Univers 15:20:00 23:59:00 HERMELINDA santana [facility] 2021-08-24 2021-08-24 Hospital [facility] 1.2.840.114 [id number] Univers 15:20:00 23:59:00 Encounter Hermelinda Infrafone 350.1.13.10 ity of [place] 4.2.7.2.686 Ash as FRIDA?BLEA [phone] [facility] [address] [facility] OFFICE [facility] 2021-08-24 2021-08-24 Office [facility] 1.2.928.841 [id number] Univers 14:56:26 16:35:45 Visit [facility] 350.1.13.10 it y of [place] 4.2.7.2.686 Ash as FRIDA?BLEA [id number] Ks shararic [facility] [address] [facility] OFFICE [facility] 2021-08-24 2021-08-24 [facility] [id number] Univers 14:45:00 16:35:45 HERMELINDA santana [facility] 2020-04-25 2020-04-25 Emergency Fuentes, [facility] 1.2.840.114 [id number] Univers 17:02:57 20:18:00 Jennifer Gordo 350.1.13.10 i ty of [place] [id number] [facility] [address] [place] [address] 2020-04-25 2020-04-25 Urgent Pob1, Acute Care Clinic [facility] 1. 2.840.114 [id number] Univers 16:11:00 16:43:29 [facility] 350.1.13.10 [facility] [place] 4.2.7.2.686 Ash as Professio [id number] [place] [address] [address] 2020-04-25 2020-04-25 Outpatient Rosemary BECKMAN [facility] [id number] Univers 16:40:00 16:40:00 [facility] Results Test Description Test Time Test Comments Results Result Sour e Comments - XR FLUORO FOR 2022-03-22 SPINE INJ 20:45:00 [facility] : 1970 Sex: F Patient Name: BHUMI VARGAS Unit No: [id number] EXAMS: CPT CODE: [id number] XR FLUORO FOR SPINE INJ 73093 LUMBAR EPIRADICULAR INJECTION REFERRAL PHYSICIAN: Alfonzo Anderson M.D. PREOPERATIVE DIAGNOSIS: Lumbar Radiculitis POSTOPERATIVE DIAGNOSIS: Early grade 1 spondylolisthesis L4-5 and left L4-5 lateral recess stenosis and primary left L5 radicular pain PROCEDURES PERFORMED: Fluoroscopically guided needle localization of the left L4 and left L5 spinal nerves with transforaminal epidurograms and epidural injection of local anesthetic and steroid. FINDINGS: Fairly good flow seen through each foramen but markedly restricted flow seen in the left L4-5 lateral recess across the early grade 1 L4-5 spondylolisthesis. The L4 level was included to obtain proximal coverage. Provocation with injection was negative. Anesthetic response was positive with the patient noting complete relief of her left low back and lower extremity pain. Preinjection VAS 8/10. Postinjection VAS 0/10. Steroid response pending follow-up. [...] Isovue-300 contrast 0.2 mL of was injected at each level incrementally with frequent negative aspirations to produce each epidurogram. There were no signs of intravascular or intrathecal uptake. Bupivicaine 0.75% 0.25 mL with lidocaine 4% 0.5 mL and Decadron 8 mg was then incrementally injected with frequent negative aspirations at each level and again there were no signs of intravascular or intrathecal uptake. The needles were removed and the patient was taken to the PACU in good condition. Image: Image 1 Image: Image 2 at 2044 Reported and signed by: David Burnett M.D. [facility] NAME: BHUMI VARGAS [address] [facility] PHYS: David Woods MD [place], [place] [address] : 1970 AGE: 52 SEX: F LOC: DanielDEMETRIUS PHONE #: [phone] EXAM DATE: 03/22/2022 STATUS: REG [facility] FA[facility] #: [phone] RAD #: D/C DT PAGE 1 Signed Report (CONTINUED) Patient Name: BHUMI VARGAS Unit No: [id number] EXAMS: CPT CODE: [id number] XR FLUORO FOR SPINE INJ 11978 (Continued) CC: David Burnett MD Technologist: HUMBERTO ANNE RT(R) Transcribed D/ (2044) [facility]: BH[facility]I [facility] [address] [facility] PHYS: Daivd Woods MD [place], [place] [address] : 1970 AGE: 52 SEX: F LOC: MichelleBARBARA PHONE #: [phone] EXAM DATE: 03/22/2022 STATUS: REG [facility] FAX #: [phone] RAD #: D/C DT PAGE 2 Signed Report Patient Name: BHUMI VARGAS Unit No: [id number] EXAMS: CPT CODE: [id number] XR FLUORO FOR SPINE INJ 49422 (Continued) Orig Print D/T: S: 03/22/2022 (2047) [facility] [place] NAME: BHUMI VARGAS [address] [facility] PHYS: David Woods MD [place], [place] [address] : 1970 AGE: 52 SEX: F LOC: RAMON PHONE #: [phone] EXAM DATE: 03/22/2022 STATUS: REG [facility] FAX #: [phone] RAD #: D/C DT PAGE 3 Signed Report GLUBED 2022-03-22 13:11:00 Test Item Value Reference Range Interpretation Comme nts GLUBED (test code = GLUBED) 74 mg/dL 60-125 N [id number] 10:59:00 Test Item Value Reference Range Interpretation Comments GLUBED (test code = GLUBED) 79 mg/dL 60-125 N - XR C-SPINE 4-5 [id number] 16:45:00 [facility] : 1970 Sex: F Patient Name: BHUMI VARGAS Unit No: [id number] EXAMS: CPT CODE: [id number] XR C-SPINE 4-5 V 08809 Cervical spine 2 views plus flexion and extension COMMENT: Vertebral body heights are maintained. Interspace narrowing and endplate degenerative change is seen from C4 to C7. Abnormal motion is seen at C3-4, C4-5, C5-6 and C6-7 with retrolisthesis in extension which is not present in neutral and flexion. at 1645 Reported and signed by: Alfonzo Tang MD CC: Alfonzo Anderson M.D. Technologist: RT Samia.(R) Transcribed D/ (0625) Oswaldo [facility] NAME: BHUMI VARGAS [address] [place] [address] PHYS: Alfonzo Rojas MD : 1970 AGE: 51 SEX: F [place] [address] LOC: Y.MRI PHONE#: [phone] EXAM DATE: 12/29/2021 STATUS: REG CLI FAX #: [phone] RAD #: D/C DT PAGE 1 Signed Report Patient Name: BHUMI VARGAS Unit No: [id number] EXAMS: CPT CODE: [id number] XR C-SPINE 4-5 V 87327 (Continued) Orig Print D/T: S: 12/29/2021 (9188) [facility] NAME: BHUMI VARGAS [address] [place] [address] PHYS: Alfonzo Rojas MD : 1970 AGE: 51 SEX: F [place] [phone] LOC: Y.MRI PHONE #: [phone] EXAM DATE: 12/29/2021 STATUS: REG CLI FAX #: [phone] RAD #: D/C DT PAGE 2 Signed Report- XR L-SPINE W/BEND [id number] 16:43:00 [facility]: 1970 Sex: F Patient Name: BHUMI VARGAS Unit No: [id number] EXAMS: CPT CODE: [id number] XR L-SPINE W/BEND VIEW 01167 LUMBARSPINE 5 VIEWS PLUS FLEXION AND EXTENSION COMMENT: COMPARISON: No prior exams available. Vertebral body heights are maintained. Interspace narrowing and endplate degenerative change is present from L1 to L3 and L4-S1. Mild retrolisthesis is seen at L3-4. Mild spondylolisthesis is present at L4-5. No abnormal motion is seen with flexion and extension. at 1643 Reported and signed by: Alfonzo Tang MD CC: Alfonzo Anderson M.D.Technologist: RT. Samia(R) Transcribed D/ (1153) [facility]: BHUMI VARGAS [address] [place] [address] PHYS: Alfonzo Rojas MD : 1970 AGE: 51 SEX:F [place] [phone] LOC: Y.MRI PHONE #: [phone] EXAM DATE: 12/29/2021 STATUS: REG CLI FAX #: [phone] RAD #: D/C DT PAGE 1 Signed Report Patient Name: BHUMI VARGAS Unit No: [id number] EXAMS: CPT CODE: [id number] XR L-SPINE W/BEND VIEW 78710 (Continued) Orig Print D/T:S: 12/29/2021 (1647) [facility] NAME: BHUMI VARGAS [address] [place] [address] PHYS: Alfonzo Rojas MD : 1970 AGE: 51 SEX: F [place] [address] LOC: Y.MRIPHONE #: [phone] EXAM DATE: 12/29/2021 STATUS: REG CLI FAX #: [phone] RAD #: D/C DT PAGE 2 Signed Report- MRI C-SPINE W/O [id number] 12:23:00 [facility] : 1970 Sex: F Patient Name: BHUMI VARGAS Unit No: [id number] EXAMS: CPT CODE: [id number] MRI C-SPINE W/O CONT 50114 DIAGNOSIS: 1. At C2-3 there is no evidence for disc bulge or herniation. No canal stenosis is seen. There is mild left foraminal narrowing without right- sided stenosis. Bilateral facet degeneration is seen greater on the left. Comparison is made with the previous examination of July 31, 2018. 2. At C3-4 there is no evidence for disc bulge or herniation, bony canal or foraminal stenosis. Bilateral facet degeneration is present. 3. At C4-5 there is mild posterior central disc bulging without canal or foraminal narrowing. 4. At C5-6 there is endplate spur and associated disc bulging lateralizing right posterior lateral. The canal is stenotic with an AP diameter of 11 mm. Moderate to marked right and moderate left foraminal narrowing is seen with facet degeneration. There is a mild retrolisthesis. 5. At C6-7 there is a mild retrolisthesis and 4 mm of left posterior lateral disc herniation with cephalad extrusion compressing the cord. No bony canal stenosis is seen. Mild right and moderate to marked left foraminal narrowing is seen with bilateral facet degeneration. 6. At C7-T1 there is a slight degenerative spondylolisthesis without evidence for disc bulge or herniation, bony canal or foraminal stenosis. Bilateral facet degeneration is present greater on the left. COMMENT: COMPARISON: July 31, 2018Scans were performed in the sagittal and axial planes utilizing T1, gradient echo, T2 and inversion recovery images. Motion artifact degrades the images. Endplate and disc degeneration is present from C5 to C7. The cord appears normal in size and signal. at 1223 Reported and signed by: Alfonzo Tang MD CC: Alfonzo Anderson M.D. Technologist: LORA SCHRADER RT(R) Transcribed D/ (0063) Oswaldo [facility] NAME: BHUMI VARGAS [address] [place] [address] PHYS: Alfonzo Rojas MD : 1970 AGE:51 SEX: F [place] [phone] LOC: Y.MRI PHONE #: [phone] EXAM DATE: 12/29/2021 STATUS: REG CLI FAX #: [phone] RAD #: D/C DT PAGE 1 Signed Report Patient Name: BHUMI VARGAS Unit No: [id number] EXAMS: CPT CODE: [id number] MRI C-SPINE W/O CONT 95528 (Continued) Orig Print D/T: S: 12/29/2021 (1226) [facility] NAME: BHUMI VARGAS [address] [place] [address] PHYS: Alfonzo Rojas MD : 1970 AGE: 51 SEX: F [place] [address] LOC: Y.MRI PHONE #: [phone] EXAM DATE: 12/29/2021 STATUS: REG CLI FAX #: [phone] RAD #: D/C DT PAGE 2 Signed Report- MRI L-SPINE W/O [id number] 12:13:00 [facility] : 1970 Sex: F Patient Name: BHUMI VARGAS Unit No: [id number] EXAMS: CPT CODE: [id number] MRI L-SPINE W/O CONT 93403 DIAGNOSIS: 1. At L1-2 there is no evidence for disc bulge or herniation, bony canal or foraminal stenosis. Comparison is made with the previous examination of July 31, 2018. 2. At L2-3 there is no evidence for disc bulge or herniation, bony canal or foraminal stenosis. 3. At L3-4 there is 2 mm of right foraminal disc bulging with annular fissuring and slight narrowing of the foramina. No canal stenosis isseen. Facet degeneration is present. 4. At L4-5 there is a degenerative grade 1 spondylolisthesis with 4 mm of right extraforaminal disc protrusion impinging on the ganglion and the right L4 nerve rootlateral to the foramen. Moderate right and mild left foraminal narrowing is seen. Facet degenerationis present with slight narrowing of the canal 5. At L5- S1 there is a grade 1 retrolisthesis and 3 mmof disc protrusion with mild right foraminal narrowing without left-sided stenosis. No canal stenosis is seen. COMMENT: COMPARISON: July 31, 2018 Scans were performed in the sagittal and axial planes utilizing T1, T2 and inversion recovery images. Endplate and disc degeneration is present from L4 to S1. An hemangioma of bone is seen in L4. Disc configurations are as described. Spondylitic changesare as noted. The conus is in the expected location. The description of the levels of these findingsis consistent with the prior exam at 1213 Reported and signed by: Alfonzo Tang MD CC: Alfonzo Anderson M.D. Technologist: LORA SCHRADER RT(R) Transcribed D/ (1213) TaniaL [facility] NAME: BHUMI VARGAS [address] [place] [address] PHYS: Alfonzo Rojas MD : 1970 AGE: 51 SEX: F [place] [phone] LOC: Y.MRI PHONE #: [phone] EXAM DATE: 12/29/2021 STATUS: REG CLI FAX #: [phone] RAD #: D/C DT PAGE 1 Signed Report Patient Name: BHUMI VARGAS Unit No: [id number] EXAMS: CPT CODE: [id number] MRI L-SPINE W/O CONT 98026 (Continued) Orig Print D/T: S: 12/29/2021 (1216) [facility] NAME: RAMÍREZ VARGAS[address] PHYS: Alfonzo Rojas AMD : 1970 AGE: 51 SEX: F [place] [phone] LOC: Y.MRI PHONE #: [phone] EXAM DATE: 12/29/2021 STATUS: REG CLI FAX #: [phone] RAD #: D/C DT PAGE 2 Signed Report- XR FLUORO FOR SPINE [id number] 17:23:00 Patient Name: BHUMI VARGAS Unit No: [id number] EXAMS: CPT CODE: [id number] XR FLUORO FOR SPINE INJ 12538 LUMBAR EPIRADICULAR INJECTION REFERRAL PHYSICIAN: Alfonzo Anderson [...] flow limitations in the bilateral L4-5 lateral r ecesses. Good flow seen centrally across the L4-5 grade 1 spondylolisthesis with minimal disc displacement. Excellent flow was also seen retrograde across L5-S1 and L3-4. Provocation with injection wasnegative. Anesthetic response was positive with the patient noting complete relief of her low back and left lower extremity pain. Preinjection VAS 9/10. Postinjection VAS 0/10. Steroid response pendingfollow-up. ESTIMATED BLOOD LOSS: Minimal ANESTHESIA: TIVA COMPLICATIONS: None DETAILS OF PROCEDURE:After obtaining stable vital signs, informed consent and IV access, with no contraindications, the patient was taken to the operating room and placed in a prone position with all extremities padded andappropriate monitors placed. The patient was sterilely prepped [...] Reported and signed by: David Burnett M.D. [facility] NAME: BHUMI VARGAS [address] [facility] PHYS: David Woods MD [place], [place] [address] : 1970 AGE: 48 SEX: F LOC: RAMON PHONE #: [phone] EXAM DATE: 01/11/2019 STATUS: [facility] FA[facility] #: [phone] RAD #: D/C DT PAGE 1 Signed Report (CONTINUED) Patient Name: BHUMI VARGAS Unit No: [id number] EXAMS: CPT CODE: [id number] XR FLUORO FOR SPINE INJ 80899 (Continued) CC: Alfonzo Anderson M.D. Technologist: Uzma Pickard(R) Transcribed D/ (9561) Hue [facility] [facility] NAME: BHUMI VARGAS [address] [facility] PHYS: David Woods MD [place] [address] : 1970 AGE: 48 SEX: F LOC: [facility] PHONE #: [phone] EXAM DATE: 01/11/2019 STATUS: [facility] FA[place] #: [phone] RAD#: D/C DT PAGE 2 Signed Report Patient Name: BHUMI VARGAS Unit No: [id number] EXAMS: CPT CODE: [id number] XR FLUORO FOR SPINE INJ [id number] (Continued) Orig Print D/T: S: 01/11/2019 (1261) [facility] NAME: BHUMI VARGAS [address] [facility] PHYS: David Woods MD [place] [address] : 1970 AGE: 48 SEX: F LOC: [facility] PHONE #: [phone] EXAM DATE: 01/11/2019 STATUS: [facility] FA[place] #: [phone] RAD #: D/C DT PAGE 3 Signed [id number] 09:44:00 Test Item Value Reference Range Interpretation Comments GLUBED (test code = GLUBED) 91 mg/dL 60-125 N [id number] 08:05:00 Test Item Value Reference Range Interpretation Comments GLUBED (test code = GLUBED) 110 mg/dL 60-125 N
[2023-05-11] MEDS ORDERED: dexAMETHasone 10 MG/ML VIAL ONE (11:05)
[2023-05-11] MEDS ORDERED: NA CHLORIDE 0.9% 1,000 ML ONE (11:06)
[2023-05-11] MEDS ORDERED: ONDANSETRON 4 MG/2 ML VIAL ONE (11:06)
[2023-05-11] MEDS ORDERED: MECLIZINE HCL 12.5 MG TAB ONE (11:06)
[2023-05-11 11:11] LABS: Absolute Lymphocytes (CBC) 1.6 K/uL (0.7-4.9); Hematocrit 37.3 % (36.0-45.0); Lymphocytes % 23.5 % (15.3-44.8); MCV 92.2 fL (80-100); MPV 9.2 fL (7.6-11.3); RBC Red Blood Cell Count 4.05 M/uL (3.86-4.86)
[2023-05-11 11:21] LABS: Protime INR 1.05
--- NOTE | 2023-05-11 11:31 | RAD REPORT ---
EXAM DESCRIPTION: CT - Head Brain Wo Cont - 05/11/2023 11:08 am CLINICAL HISTORY: Dizziness COMPARISON: 2019 TECHNIQUE: Computed axial tomography of the head was obtained. IV contrast was not requested. All CT scans are performed using dose optimization technique as appropriate and may include automated exposure control or mA/KV adjustment according to patient size. FINDINGS: An intracranial bleed is not seen The ventricles are normal in caliber Small extra-axial fluid collection right foot frontal lobe probably an arachnoid cyst. No significant hypoechoic density within the brain noted Fluid within the sinuses/ mastoids is not seen. IMPRESSION: No acute intracranial abnormality is seen If patient's symptoms persist MRI of the brain would be recommended
[2023-05-11 11:32] LABS: ALT/SGPT 46 U/L (13-56); AST/SGOT 20 U/L (15-37); Albumin 3.8 g/dL (3.4-5.0); Alkaline Phosphatase 103 U/L (45-117); BUN Blood Urea Nitrogen 8 mg/dL (7-18); Bicarbonate 28 mEq/L (21-32); Bilirubin Total 0.3 mg/dL (0.2-1.0); Glomerular Filtration Rate 115 ml/min (=/>90); Glucose Level 136 mg/dL (74-106); Magnesium 2.1 mg/dL (1.6-2.4); NT PRO-BNP 46 pg/mL (<125); Potassium 3.9 mEq/L (3.5-5.1); Protein, Total 7.3 g/dL (6.4-8.2); Sodium Level 138 mEq/L (136-145); Troponin High Sensitivity 3.6 pg/mL (<58.9)
[2023-05-11 11:33] LABS: Bilirubin Direct < 0.1 mg/dL (0-0.2); Bilirubin Indirect, Calculated ND mg/dL (0.2-0.8)
--- NOTE | 2023-05-11 12:19 | RAD REPORT ---
EXAM DESCRIPTION: USCarotid Artery Bilateral05/11/2023 11:52 am CLINICAL HISTORY: Dizziness COMPARISON: None FINDINGS: The velocity of the right internal carotid artery equals 77 cm/sec. The right ICA/CCA rati o 0.9 The velocity of the left internal carotid artery equals 75 cm/sec. The left ICA/CCA ratio 0.7 No plaque is visualized within the common carotid/vertebral arteries. Common carotid arteries are tortuous The vertebral arteries demonstrate antegrade flow IMPRESSION: No significant abnormality is displayed NASCET criteria used. Mild 0-49% stenosis Moderate 50-69% stenosis Severe 70-99% stenosis
--- NOTE | 2023-05-11 12:30 | RAD REPORT ---
EXAM DESCRIPTION: RAD - Chest Single View - 05/11/2023 12:06 pm CLINICAL HISTORY: COUGH Chest pain. COMPARISON: Chest Pa And Lat (2 Views) dated 11/25/2019 FINDINGS: Portable technique limits examination quality. The lungs are grossly clear. The heart is normal in size. No displaced fractures. IMPRESSION: No acute intrathoracic process suspected.
[2023-05-11 12:40] LABS: Specific Gravity 1.005 (1.005-1.030); Urine Bilirubin NEGATIVE (Negative); Urine Blood Negative (Negative); Urine Clarity Clear (Clear); Urine Color Colorless (Yellow); Urine Glucose NEGATIVE (Negative); Urine Protein NEGATIVE (Negative); Urine Urobilinogen Normal (Normal); Urine pH 7.5 (5.0-7.0)
--- NOTE | 2023-05-11 12:48 | EDPHYS ---
Physician Documentation [facility] Name: Flor Groves Age: 53 yrs Sex: Female : 1970 Arrival Date: 05/11/2023 Time: 10:21 Bed 16 Private MD: ED Physician Rah Hampton HPI: 05/11 11:36 This 53 yrs old Female presents to ER via Wheelchair with complaints of omid Nausea, Dizziness. 11:36 The patient presents to the emergency department with nausea, that is mild. omid 11:36 Onset: The symptoms/episode began/occurred 3 day(s) ago. Possible causes: unknown. The omid symptoms are aggravated by movement, The symptoms are alleviated by remaining still. The patient presents with vertigo. Context: occurred at an unknown location, occurred while the patient was walking. Modifying factors: The symptoms are alleviated by nothing, the symptoms are aggravated by nothing. Associated signs and symptoms: Pertinent positives: nausea. Severity of symptoms: At their worst the symptoms were mild in the emergency department the symptoms are unchanged. Patient's baseline: Neuro: alert and fully oriented. Historical: - Allergies: 10:30 No Known Allergies; aa5 - PMHx: 10:30 Depression; Diabetes - NIDDM; Hypertension; aa5 - Immunization history:: Adult Immunizations unknown. - Social history:: Smoking status: Patient denies any tobacco usage or history of. - Family history:: not pertinent. ROS: 11:36 Constitutional: Negative for fever, chills, and weight loss, Eyes: Negative for injury, omid pain, redness, and discharge, ENT: Negative for injury, pain, and discharge, Neck: Negative for injury, pain, and swelling, Cardiovascular: Negative for chest pain, palpitations, and edema, Respiratory: Negative for shortness of breath, cough, wheezing, and pleuritic chest pain, Abdomen/GI: Negative for abdominal pain, nausea, vomiting, diarrhea, and constipation, Back: Negative for injury and pain, : Negative for injury, bleeding, discharge, and swelling, MS/Extremity: Negative for injury and deformity, Skin: Negative for injury, rash, and discoloration, Neuro: Negative for headache, weakness, numbness, tingling, and seizure, Psych: Negative for depression, anxiety, suicide ideation, homicidal ideation, and hallucinations, Allergy/Immunology: Negative for hives, rash, and allergies, Endocrine: Negative for neck swelling, polydipsia, polyuria, polyphagia, and marked weight changes, Hematologic/Lymphatic: Negative for swollen nodes, abnormal bleeding, and unusual bruising. 11:36 Neuro: Positive for dizziness, weakness. Exam: 11:36 Constitutional: This is a well developed, well nourished patient who is awake, alert, omid and in no acute distress. Head/Face: Normocephalic, atraumatic. Eyes: Pupils equal round and reactive to light, extra-ocular motions intact. Lids and lashes normal. Conjunctiva and sclera are non-icteric and not injected. Cornea within normal limits. Periorbital areas with no swelling, redness, or edema. ENT: Nares patent. No nasal discharge, no septal abnormalities noted. Tympanic membranes are normal and external auditory canals are clear. Oropharynx with no redness, swelling, or masses, exudates, or evidence of obstruction, uvula midline. Mucous membranes moist. Neck: Trachea midline, no thyromegaly or masses palpated, and no cervical lymphadenopathy. Supple, full range of motion without nuchal rigidity, or vertebral point tenderness. No Meningismus. Chest/axilla: Normal chest wall appearance and motion. Nontender with no deformity. No lesions are appreciated. Cardiovascular: Regular rate and rhythm with a normal S1 and S2. No gallops, murmurs, or rubs. Normal PMI, no JVD. No pulse deficits. Respiratory: Lungs have equal breath sounds bilaterally, clear to auscultation and percussion. No rales, rhonchi or wheezes noted. No increased work of breathing, no retractions or nasal flaring. Abdomen/GI: Soft, non-tender, with normal bowel sounds. No distension or tympany. No guarding or rebound. No evidence of tenderness throughout. Back: No spinal tenderness. No costovertebral tenderness. Full range of motion. Skin: Warm, dry with normal turgor. Normal color with no rashes, no lesions, and no evidence of cellulitis. MS/ Extremity: Pulses equal, no cyanosis. Neurovascular intact. Full, normal range of motion. Neuro: Awake and alert, GCS 15, oriented to person, place, time, and situation. Cranial nerves II-XII grossly intact. Motor strength 5/5 in all extremities. Sensory grossly intact. Cerebellar exam normal. Normal gait. Psych: Awake, alert, with orientation to person, place and time. Behavior, mood, and affect are within normal limits. 11:36 ECG was reviewed by the Attending Physician. Vital Signs: 10:30 BP 142 / 85; Pulse 78; Resp 18 S; Temp 98.9(O); Pulse Ox 99% on R/A; Weight 93.89 kg aa5 (R); Height 5 ft. 4 in. (R); 11:50 BP 146 / 84; Pulse 73; Resp 16 S; Pulse Ox 99% on R/A; kc6 13:09 BP 134 / 74; Pulse 68; Resp 17 S; Pulse Ox 98% on R/A; kc6 10:30 Body Mass Index 35.53 (93.89 kg, 162.56 cm) aa5 MDM: 10:29 Patient medically screened. omid 11:48 Differential diagnosis: Nonspecific abd pain, gastritis, viral gastroenteritis, omid gastroenteritis. Differential diagnosis: CVA, generalized weakness, GI bleed, hypovolemia, idiopathic dizziness, near-syncope. Data reviewed: vital signs, nurses notes, lab test result(s), EKG, radiologic studies, CT scan, doppler, plain films. Consideration of Admission/Observation Escalation of care including admission/observation considered. I considered the following discharge prescriptions or medication management in the emergency department Medications were administered in the Emergency Department. See MAR. Test considered but Not performed: MRI: [facility] mri brain. Care significantly affected by the following chronic conditions: Diabetes, Hypertension, Obesity, depression. Counseling: I had a detailed discussion with the patient and/or guardian regarding: the historical points, exam findings, and any diagnostic results supporting the discharge/admit diagnosis, lab results, radiology results, the need for outpatient follow up. 05/11 10:52 Order name: Basic Metabolic Panel; Complete Time: 11:05/11 10:52 Order name: CBC with Diff; Complete Time: :05/11 10:52 Order name: LFT's; Complete Time: 11:05/11 10:52 Order name: Magnesium; Complete Time: 11:05/11 10:52 Order name: NT PRO-BNP; Complete Time: 11:05/11 10:52 Order name: PT-INR; Complete Time: 11:26 10:52 Order name: Troponin HS; Complete Time: 11:35 [facility] 05/11 10:52 Order name: Urinalysis w/ reflexes 05/11 10:52 Order name: XRAY Chest (1 view); Complete Time: 12:45 [facility] 05/11 10:52 Order name: CT Head Brain wo Cont; Complete Time: 11:35 [facility] 05/11 10:52 Order name: US Carotid Artery Bilateral; Complete Time: 12:45 [facility] 05/11 10:52 Order name: EKG; Complete Time: 1053 [facility] 05/11 10:52 Order name: Cardiac monitoring; Complete Time: 10:53 [facility] 05/11 10:52 Order name: EKG - Nurse/Tech; Complete Time: [facility] 05/11 10:52 Order name: IV Saline Lock; Complete Time: [facility] 05/11 10:52 Order name: Labs collected and sent; Complete Time: [facility] 05/11 10:52 Order name: O2 Per Protocol; Complete Time: [facility] 05/11 10:52 Order name: O2 Sat Monitoring; Complete Time: 10:53 [facility] EC:36 Rate is 76 beats/min. T waves are Normal. No ST changes noted. Clinical impression: NSR omid w/ Non-specific ST/T Changes and No evidence of ischemia. Interpreted by me. Reviewed by me. Administered Medications: 11:04 Drug: NS 0.9% IV 1000 ml Route: IV; Rate: 1 bolus; Site: left antecubital; kc6 13:09 Follow up: Response: No adverse reaction; IV Status: Completed infusion; IV Intake: kc6 1000ml 11:04 Drug: Meclizine PO 50 mg Route: PO; kc6 11:50 Follow up: Response: No adverse reaction kc6 11:04 Drug: Decadron - Dexamethasone IVP 10 mg Route: IVP; Site: left antecubital; kc6 11:52 Follow up: Response: No adverse reaction kc6 11:04 Drug: Ondansetron IVP 8 mg Route: IVP; Site: left antecubital; kc6 13:09 Follow up: Response: No adverse reaction; Nausea is decreased kc6 Disposition Summary: 05/11/23 12:48 Discharge Ordered Location: Home omid Problem: new omid Symptoms: have improved omid Condition: Stable omid Diagnosis - Other peripheral vertigo omid - Dizziness and giddiness omid - Nausea omid Followup: omid - With: Private Physician - When: 2 - 3 days - Reason: Recheck today's complaints, Continuance of care, Re-evaluation by your physician Followup: omid - With: - When: 2 - 3 days - Reason: Recheck today's complaints, Continuance of care, Re-evaluation by your physician Discharge Instructions: - Discharge Summary Sheet omid - Benign Positional Vertigo omid - Dizziness omid - Nausea, Adult omid - Vertigo omid - Nausea and Vomiting, Adult, Sobg-tg-[id number] omid - Vertigo, Gbxj-ot-Auxu omid - Aspirin and Your Heart omid - Dizziness, Bezi-yj-Xsbx omid Forms: - Medication Reconciliation Form [facility] - Thank You Letter [facility] - Antibiotic Education omid - Prescription Opioid Use omid - Patient Portal Instructions [facility] Prescriptions: - Meclizine 25 mg Oral Tablet - take 1 tablet by ORAL route every 6 hours As needed; 30 tablet; Refills: 0, [facility] Product Selection Permitted - Zofran 4 mg Oral Tablet - take 1 tablet by ORAL route every 6-8 hours As needed; 20 tablet; Refills: 0, [facility] Product Selection Permitted Signatures: Dispatcher [employer] Rah Rodriguez MD MD cha Calderon, Audri, RN RN aa5 Catie Stewart RN RN kc6
--- NOTE | 2023-05-11 12:48 | ER ---
Nurse's Notes [facility] Name: Flor Groves Age: 53 yrs Sex: Female : 1970 Arrival Date: 05/11/2023 Time: 10:21 Bed 16 Private MD: Diagnosis: Other peripheral vertigo;Dizziness and giddiness;Nausea Presentation: 05/11 10:30 Chief complaint: Patient states: "I woke up very dizzy and couldn't walk straight". Pt aa5 also reports nausea. 10:30 Coronavirus screen: At this time, the client does not indicate any symptoms associated aa5 with coronavirus-19. Ebola Screen: Patient denies travel to an Ebola-affected area in the 21 days before illness onset. Initial Sepsis Screen: Does the patient meet any 2 criteria? No. Patient's initial sepsis screen is negative. Does the patient have a suspected source of infection? No. Patient's initial sepsis screen is negative. Risk Assessment: Do you want to hurt yourself or someone else? Patient reports no desire to harm self or others. Onset of symptoms was May 11, 2023. 10:30 Acuity: CHAPIS 2 aa5 10:30 Method Of Arrival: Wheelchair aa5 Historical: - Allergies: 10:30 No Known Allergies; aa5 - PMHx: 10:30 Depression; Diabetes - NIDDM; Hypertension; aa5 - Immunization history:: Adult Immunizations unknown. - Social history:: Smoking status: Patient denies any tobacco usage or history of. - Family history:: not pertinent. Screenin:47 [facility] ED Fall Risk Assessment (Adult) History of falling in the last 3 months, kc6 including since admission No falls in past 3 months (0 pts) Confusion or Disorientation No (0 pts) Intoxicated or Sedated No (0 pts) Impaired Gait No (0 pts) Mobility Assist Device Used No (0 pt) Altered Elimination No (0 pt) Score/Fall Risk Level 0 - 2 = Low Risk. Abuse screen: Denies threats or abuse. Denies injuries from another. Nutritional screening: No deficits noted. Tuberculosis screening: No symptoms or risk factors identified. Assessment: 10:46 General: Appears in no apparent distress. comfortable, Behavior is calm, cooperative, kc6 appropriate for age. Pain: Denies pain. Neuro: Busch Agitation-Sedation Scale (RASS): 0 - Alert and Calm Level of Consciousness is awake, alert, obeys commands, Oriented to person, place, time, situation, Appropriate for age Reports dizziness. Cardiovascular: Heart tones S1 S2 present Capillary refill < 3 seconds Rhythm is sinus rhythm. Respiratory: Airway is patent Trachea midline Respiratory effort is even, unlabored, Respiratory pattern is regular, symmetrical. GI: Abdomen is round non-distended, Reports nausea, Patient currently denies diarrhea, vomiting. : No signs and/or symptoms were reported regarding the genitourinary system. EENT: No signs and/or symptoms were reported regarding the EENT system. Derm: No signs and/or symptoms reported regarding the dermatologic system. Skin is intact, is healthy with good turgor, Skin is pink, warm \\T\\ dry. Musculoskeletal: No signs and/or symptoms reported regarding the musculoskeletal system. Circulation, motion, and sensation intact. Capillary refill < 3 seconds, Range of motion: intact in all extremities. 11:50 Reassessment: Patient appears in no apparent distress at this time. No changes from kc6 previously documented assessment. Patient and/or family updated on plan of care and expected duration. Pain level reassessed. Patient is alert, oriented x 3, equal unlabored respirations, skin warm/dry/pink. 13:09 Reassessment: Patient appears in no apparent distress at this time. No changes from kc6 previously documented assessment. Patient and/or family updated on plan of care and expected duration. Pain level reassessed. Patient is alert, oriented x 3, equal unlabored respirations, skin warm/dry/pink. Vital Signs: 10:30 BP 142 / 85; Pulse 78; Resp 18 S; Temp 98.9(O); Pulse Ox 99% on R/A; Weight 93.89 kg aa5 (R); Height 5 ft. 4 in. (R); 11:50 BP 146 / 84; Pulse 73; Resp 16 S; Pulse Ox 99% on R/A; kc6 13:09 BP 134 / 74; Pulse 68; Resp 17 S; Pulse Ox 98% on R/A; kc6 10:30 Body Mass Index 35.53 (93.89 kg, 162.56 cm) aa5 ED Course: 10:27 Patient arrived in ED. im 10:29 Rah Hampton MD is Attending Physician. omid 10:30 Catie Stewart, RN is Primary Nurse. kc6 10:30 Arm band placed on Patient placed in an exam room, on a stretcher. aa5 10:42 Triage completed. aa5 10:47 Patient has correct armband on for positive identification. Bed in low position. Call kc6 light in reach. Side rails up X2. Adult w/ patient. 10:53 Inserted saline lock: 20 gauge in left antecubital area, using aseptic technique. Blood kc6 collected. 11:08 CT Head Brain wo Cont In Process Unspecified. EDMS 11:53 US Carotid Artery Bilateral In Process Unspecified. EDMS 12:07 XRAY Chest (1 view) In Process Unspecified. EDMS 12:48 Jonh Flores MD is Referral Physician. omid 13:10 No provider procedures requiring assistance completed. IV discontinued, intact, kc6 bleeding controlled, No redness/swelling at site. Pressure dressing applied. Administered Medications: 11:04 Drug: NS 0.9% IV 1000 ml Route: IV; Rate: 1 bolus; Site: left antecubital; kc6 13:09 Follow up: Response: No adverse reaction; IV Status: Completed infusion; IV Intake: kc6 1000ml 11:04 Drug: Meclizine PO 50 mg Route: PO; kc6 11:50 Follow up: Response: No adverse reaction kc6 11:04 Drug: Decadron - Dexamethasone IVP 10 mg Route: IVP; Site: left antecubital; kc6 11:52 Follow up: Response: No adverse reaction kc6 11:04 Drug: Ondansetron IVP 8 mg Route: IVP; Site: left antecubital; kc6 13:09 Follow up: Response: No adverse reaction; Nausea is decreased kc6 Medication: 13:10 VIS not applicable for this client. kc6 Intake: 13:09 IV: 1000ml; Total: 1000ml. kc6 Outcome: 12:48 Discharge ordered by . omid 13:10 Discharged to home ambulatory, with significant other. kc6 13:10 Condition: improved 13:10 Discharge instructions given to patient, Instructed on discharge instructions, follow up and referral plans. medication usage, Demonstrated understanding of instructions, follow-up care, medications, Prescriptions given X 2. 13:10 Patient left the ED. kc6 Signatures: Dispatcher [employer] Rah Rodriguez MD MD cha Calderon, Audri, RN RN aa5 Catie Stewart RN RN kc6 Sheri Limon
[2023-05-11 13:19] VITALS: TEMP 98.9
[2023-05-11 13:35] VITALS: BP 134/74; O2SAT 98
--- NOTE | 2023-05-12 13:22 | EKG ---
Test Date: 2023-05-11 Test Time: 10:42:38 Business Affairs Manager: KASSI MEASUREMENT RESULTS: Intervals: Rate: 76 VA: 160 QRSD: 84 QT: 380 QTc: 427 [place]: P: 8 VA: 160 QRS: 45 T: -4 INTERPRETIVE STATEMENTS: Normal sinus rhythm Nonspecific T wave abnormality Abnormal ECG Compared to ECG 11/25/2019 16:09:43 T-wave abnormality now present Electronically Signed On 05-12-23 13:20:04 CDT by Víctor Sanford
== END 2023-05-11 13:10 | disposition home or self-care (01) ==
LOC: ER 10:21
DX: H81.399 Other peripheral vertigo, unspecified ear (principal); R11.0 Nausea; I10 Essential (primary) hypertension; E11.9 Type 2 diabetes mellitus without complications
CPT/HCPCS: 85025; 80048; 36415; 83735; 85610; 80076; 81003; 84484; 83880; 70450; 71045; 93880; J8597; J1100; J2405; J7030; 93005; 96361; 96374; 96375; 99284